=== PATIENT | female | born 1970 | race American Indian/Alaskan Native ===

== ENCOUNTER 2017-06-22 23:15 | Emergency (ER) | payer MEDICARE ==
[2017-06-23 00:46] LABS: Basophils # (Auto) 0.1 K/mm3 (0.0-0.1); Basophils % (Auto) 0.9 % (0.0-1.8); Eosinophils # (Auto) 0.2 K/mm3 (0.0-0.4); Eosinophils % (Auto) 1.6 % (0.0-4.3); Hematocrit 31.6 % (30.3-42.9); Hemoglobin 10.1 gm/dl (10.1-14.3); Lymphocytes # (Auto) 1.5 K/mm3 (1.2-5.4); Mean Corpuscular HGB Conc 32 % (30-34); Mean Corpuscular Hemoglobin 26 pg (28-32); Mean Corpuscular Volume 81 fl (79-97); Monocytes # (Auto) 0.6 K/mm3 (0.0-0.8); Monocytes % (Auto) 6.5 % (0.0-7.3); Platelet Count 417 K/mm3 (140-440); Red Cell Distribution Width 14.4 % (13.2-15.2)
[2017-06-23 10:43] VITALS: BP 178/91
--- NOTE | 2017-06-23 11:42 | XRay Report ---
CHEST 2 VIEWS INDICATION: Chest pain. COMPARISON: None similar. FINDINGS: Frontal and lateral chest radiographs demonstrate limited inspiration with mild exaggerated cardiomediastinal silhouette, though grossly within normal limits. Clear lungs. Slight mid thoracic spine degenerative spurring. CONCLUSION: No acute chest process, as described. Thank you for the opportunity to participate in this patient's care.
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
== END 2017-06-23 14:05 | disposition home or self-care (01) ==
LOC: ED 23:15
DX: R07.89 Other chest pain (principal); I10 Essential (primary) hypertension; E11.9 Type 2 diabetes mellitus without complications
CPT/HCPCS: 36415; 71046; 80048; 84484; 85025; 93005; 93010

== ENCOUNTER 2017-06-25 01:14 | Emergency (ER) | payer MEDICARE ==
[2017-06-25 02:18] LABS: Hematocrit 32.2 % (30.3-42.9); Hemoglobin 10.5 gm/dl (10.1-14.3); Mean Corpuscular HGB Conc 33 % (30-34); Mean Corpuscular Hemoglobin 26 pg (28-32); Mean Corpuscular Volume 81 fl (79-97); Red Blood Count 3.99 M/mm3 (3.65-5.03); Red Cell Distribution Width 14.2 % (13.2-15.2)
[2017-06-25 02:19] LABS: Basophils # (Auto) 0.1 K/mm3 (0.0-0.1); Basophils % (Auto) 0.9 % (0.0-1.8); Eosinophils # (Auto) 0.1 K/mm3 (0.0-0.4); Eosinophils % (Auto) 1.2 % (0.0-4.3); Lymphocytes # (Auto) 1.5 K/mm3 (1.2-5.4); Lymphocytes % (Auto) 13.9 % (13.4-35.0); Monocytes # (Auto) 0.7 K/mm3 (0.0-0.8); Monocytes % (Auto) 6.3 % (0.0-7.3); Platelet Count 428 K/mm3 (140-440)
[2017-06-25 04:09] LABS: Amphetamine Screen,Urine PRESUMPTIVE NEGATIVE; Benzodiazepines Screen,Urine PRESUMPTIVE NEGATIVE; Cannabinoid Screen,Urine PRESUMPTIVE NEGATIVE; Cocaine Screen,Urine PRESUMPTIVE NEGATIVE; Methadone Screen,Urine PRESUMPTIVE NEGATIVE; Opiate Screen,Urine PRESUMPTIVE NEGATIVE
[2017-06-25 04:13] LABS: Bacteria,Urine 1+ /HPF (Negative); Bilirubin,Urine NEG (Negative); Blood,Urine SM (Negative); Color,Urine Yellow (Yellow); Mucus,Urine FEW /HPF; Urobilinogen,Urine < 2.0 mg/dL (<2.0)
[2017-06-25] MEDS ORDERED: NORVASC PO ONE (11:29)
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
[2017-06-25 19:43] VITALS: BP 142/79
== END 2017-06-25 21:12 ==
LOC: ED 01:14
DX: F23 Brief psychotic disorder (principal); I13.10 Hypertensive heart and chronic kidney disease without heart failure, with stage 1 through stage 4 chronic kidney disease, or unspecified chronic kidney disease; N18.3 Chronic kidney disease, stage 3 (moderate)
CPT/HCPCS: 36415; 80048; 80307; 81001; 82962; 85025; 99285; G0480; 80320

== ENCOUNTER 2017-08-19 23:45 | Emergency (ER) | payer MEDICARE ==
[2017-08-20 01:19] LABS: Albumin 3.7 g/dL (3.9-5); Calcium 8.9 mg/dL (8.4-10.2)
[2017-08-20 01:56] LABS: Basophils # (Auto) 0.1 K/mm3 (0.0-0.1); Basophils % (Auto) 0.7 % (0.0-1.8); Eosinophils # (Auto) 0.1 K/mm3 (0.0-0.4); Eosinophils % (Auto) 1.2 % (0.0-4.3); Lymphocytes # (Auto) 1.4 K/mm3 (1.2-5.4); Lymphocytes % (Auto) 14.3 % (13.4-35.0); Mean Corpuscular HGB Conc 31 % (30-34); Mean Corpuscular Volume 82 fl (79-97); Monocytes # (Auto) 0.5 K/mm3 (0.0-0.8); Monocytes % (Auto) 5.4 % (0.0-7.3); Platelet Count 270 K/mm3 (140-440); Red Blood Count 5.66 M/mm3 (3.65-5.03); Red Cell Distribution Width 15.5 % (13.2-15.2)
[2017-08-20 02:02] LABS: Hematocrit 46.3 % (30.3-42.9); Hemoglobin 14.4 gm/dl (10.1-14.3); Mean Corpuscular Hemoglobin 25 pg (28-32)
[2017-08-20 05:15] LABS: Amorphous Crystals,Urine Few; Bacteria,Urine 2+ /HPF (Negative); Bilirubin,Urine NEG (Negative); Blood,Urine SM (Negative); Color,Urine Yellow (Yellow); Hyaline Casts,Urine 1 /LPF; Mucus,Urine FEW /HPF; Urobilinogen,Urine < 2.0 mg/dL (<2.0)
[2017-08-20 05:19] LABS: Amphetamine Screen,Urine PRESUMPTIVE NEGATIVE; Benzodiazepines Screen,Urine PRESUMPTIVE NEGATIVE; Cannabinoid Screen,Urine PRESUMPTIVE NEGATIVE; Cocaine Screen,Urine PRESUMPTIVE NEGATIVE; Methadone Screen,Urine PRESUMPTIVE NEGATIVE; Opiate Screen,Urine PRESUMPTIVE NEGATIVE; Protein,Urine >500 mg/dL (Negative)
--- NOTE | 2017-08-20 13:10 | Emergency Department Report ---
ED General Adult HPI - General Chief complaint: Medical Clearance Stated complaint: MH; ANXIETY; WEAKNESS Time Seen by Provider: 08/20/17 13:04 Source: patient, family Mode of arrival: Ambulatory Limitations: No Limitations - History of Present Illness Initial comments: History of diabetes and chronic kidney disease schizophrenia and anxiety here stating that she's been noncompliant with her meds with increase in anxiety patient is a poor historian says she ran out of her psych meds she wants to talk to mental health she is worried that she might do something to herself or she doesn't plan she is hearing some voices telling her to get some more safe she does not appear suicidal or homicidal at this time but she says she is scared of what she might do if she does get some help she denies medical complaints of chest pain no abdominal pain no headache no stiff neck no fever no focal neural complaints -: days(s) (out of her psych meds), unknown Severity scale (0 -10): 0 Associated Symptoms: denies other symptoms. denies: confusion, chest pain, cough, diaphoresis, headaches, loss of appetite, malaise, nausea/vomiting, rash , shortness of breath, syncope, weakness - Related Data Home Medications Medication Instructions Recorded Confirmed Last Taken Insulin NPH Hum/Reg Insulin Hm 30 units SUB-Q AMHY 06/25/17 06/25/17 Unknown [HumuLIN 70-30 Vial] Lasix 40 mg PO ONCE 06/25/17 06/25/17 Unknown amLODIPine [Norvasc] 5 mg PO QDAY 06/25/17 06/25/17 Unknown Allergies Allergy/AdvReac Type Severity Reaction Status Date / Time naproxen Allergy Unknown Verified 11/19/12 09:10 Sulfa (Sulfonamide Allergy Headache Verified 11/19/12 09:10 Antibiotics) levofloxacin [From Levaquin] AdvReac Headache Verified 06/23/17 00:04 ED Review of Systems ROS: Stated complaint: MH; ANXIETY; WEAKNESS Other details as noted in HPI Comment: All other systems reviewed and negative Constitutional: denies: diaphoresis, fever, malaise Eyes: denies: eye discharge, vision change ENT: denies: dental pain, hearing loss, epistaxis Respiratory: denies: shortness of breath, SOB with exertion, SOB at rest, stridor Cardiovascular: denies: chest pain, palpitations, dyspnea on exertion, orthopnea , edema, syncope, paroxysmal nocturnal dyspnea Gastrointestinal: denies: abdominal pain, nausea, vomiting, diarrhea, constipation, hematemesis, melena, hematochezia Musculoskeletal: denies: joint swelling, arthralgia Skin: denies: change in color, change in hair/nails, pruritus Neurological: denies: headache, weakness, numbness, paresthesias, confusion, abnormal gait, vertigo Psychiatric: anxiety, depression, auditory hallucinations. denies: visual hallucinations, homicidal thoughts ED Past Medical Hx - Past Medical History Previous Medical History?: Yes Hx Hypertension: Yes (takes lisinopril) Hx Congestive Heart Failure: No Hx Diabetes: Yes Hx Renal Disease: Yes (kidney failure) Hx Seizures: Yes (at age 1) Hx Psychiatric Treatment: Yes (schizophrenia,anxiety,depression) Hx Asthma: No Hx COPD: No Hx HIV: No Additional medical history: cholesterol, TIA. 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 fibroids - Surgical History Past Surgical History?: Yes Additional Surgical History: d & c. tubal ligation. hysterectomy - Social History Smoking Status: Never Smoker Substance Use Type: None - Medications Home Medications: Home Medications Medication Instructions Recorded Confirmed Last Taken Type Insulin NPH Hum/Reg Insulin Hm 30 units SUB-Q AMHY 06/25/17 06/25/17 Unknown History [HumuLIN 70-30 Vial] Lasix 40 mg PO ONCE 06/25/17 06/25/17 Unknown History amLODIPine [Norvasc] 5 mg PO QDAY 06/25/17 06/25/17 Unknown History ED Physical Exam - General Limitations: No Limitations General appearance: alert, in no apparent distress, anxious - Head Head exam: Present: atraumatic, normocephalic - Eye Eye exam: Present: PERRL, EOMI - ENT ENT exam: Present: normal exam, normal orophraynx - Neck Neck exam: Present: normal inspection. Absent: tenderness, meningismus - Respiratory Respiratory exam: Present: normal lung sounds bilaterally. Absent: respiratory distress, wheezes, rales, rhonchi, stridor, chest wall tenderness, accessory muscle use, decreased breath sounds, prolonged expiratory - Cardiovascular Cardiovascular Exam: Present: regular rate, normal rhythm. Absent: bradycardia , tachycardia, irregular rhythm, normal heart sounds, systolic murmur, diastolic murmur, rubs, gallop - GI/Abdominal GI/Abdominal exam: Present: soft. Absent: distended, tenderness, guarding, rebound, rigid, mass, pulsatile mass - Extremities Exam Extremities exam: Present: normal inspection, normal capillary refill. Absent: pedal edema, joint swelling, calf tenderness - Back Exam Back exam: Present: normal inspection. Absent: tenderness, CVA tenderness (R), CVA tenderness (L), muscle spasm, paraspinal tenderness, vertebral tenderness, rash noted - Neurological Exam Neurological exam: Present: alert, oriented X3, CN II-XII intact. Absent: motor sensory deficit - Psychiatric Psychiatric exam: Present: depressed, anxious ED Course Vital Signs 08/20/17 08/20/17 00:32 13:08 Temperature 99.6 F Pulse Rate 86 Respiratory 17 18 Rate Blood Pressure 118/60 O2 Sat by Pulse 98 Oximetry ED Medical Decision Making - Lab Data Result diagrams: 08/20/17 00:45 08/20/17 00:45 - Medical Decision Making Patient is medically cleared for psych eval she is not actively si No homicidal at this time mental health will need to evaluate for possible outpatient she has no medical complaints and laboratory studies are essentially unremarkable, medically cleared for mental health eval, notifeed of need for psych eval Critical care attestation.: If time is entered above; I have spent that time in minutes in the direct care of this critically ill patient, excluding procedure time. ED Disposition Clinical Impression: Anxiety, Depression, Psychosis Disposition: DC/[place]-65 PSY HOSP/PSY UNIT Is pt being admited?: No Condition: Stable Referrals: PRIMARY CARE [Primary Care Provider] - 3-5 Days Time of Disposition: 13:21
[2017-08-20 15:32] VITALS: BP 176/88
== END 2017-08-20 16:10 | disposition home or self-care (01) ==
LOC: ED 23:45
DX: F41.9 Anxiety disorder, unspecified (principal); F32.9 Major depressive disorder, single episode, unspecified; F29 Unspecified psychosis not due to a substance or known physiological condition; I10 Essential (primary) hypertension; E11.9 Type 2 diabetes mellitus without complications; Z86.73 Personal history of transient ischemic attack (TIA), and cerebral infarction without residual deficits; Z90.710 Acquired absence of both cervix and uterus; Z98.51 Tubal ligation status; Z88.2 Allergy status to sulfonamides; Z88.8 Allergy status to other drugs, medicaments and biological substances; Z79.4 Long term (current) use of insulin; Z79.899 Other long term (current) drug therapy
CPT/HCPCS: 36415; 80053; 80307; 81001; 84703; 85025; 99284; G0480; 80320

== ENCOUNTER 2017-10-01 22:59 | Emergency (ER) | payer MEDICARE ==
[2017-10-02 00:18] LABS: Basophils # (Auto) 0.1 K/mm3 (0.0-0.1); Basophils % (Auto) 0.9 % (0.0-1.8); Eosinophils # (Auto) 0.2 K/mm3 (0.0-0.4); Eosinophils % (Auto) 1.9 % (0.0-4.3); Hemoglobin 10.1 gm/dl (10.1-14.3); Lymphocytes # (Auto) 1.7 K/mm3 (1.2-5.4); Lymphocytes % (Auto) 16.3 % (13.4-35.0); Mean Corpuscular HGB Conc 33 % (30-34); Mean Corpuscular Volume 79 fl (79-97); Monocytes # (Auto) 0.7 K/mm3 (0.0-0.8); Monocytes % (Auto) 7.1 % (0.0-7.3); Platelet Count 409 K/mm3 (140-440); Red Blood Count 3.93 M/mm3 (3.65-5.03)
[2017-10-02 00:19] LABS: Mean Corpuscular Hemoglobin 26 pg (28-32)
[2017-10-02 02:31] LABS: Bilirubin,Urine NEG (Negative); Blood,Urine SM (Negative); Color,Urine Yellow (Yellow); Mucus,Urine FEW /HPF; Urobilinogen,Urine < 2.0 mg/dL (<2.0)
[2017-10-02 02:35] LABS: Amphetamine Screen,Urine PRESUMPTIVE NEGATIVE; Benzodiazepines Screen,Urine PRESUMPTIVE NEGATIVE; Cannabinoid Screen,Urine PRESUMPTIVE NEGATIVE; Cocaine Screen,Urine PRESUMPTIVE NEGATIVE; Methadone Screen,Urine PRESUMPTIVE NEGATIVE; Opiate Screen,Urine PRESUMPTIVE NEGATIVE
[2017-10-02] MEDS ORDERED: CATAPRES ONE (03:48)
[2017-10-02] MEDS ORDERED: CATAPRES PO ONE (03:57)
--- NOTE | 2017-10-02 08:39 | Emergency Department Report ---
ED General Adult HPI - General Chief complaint: Psych Stated complaint: ANXIETY Time Seen by Provider: 10/02/17 06:58 Source: patient, EMS (ems notes not available at time of chart dictation), RN notes reviewed, old records reviewed Mode of arrival: Ambulatory Limitations: No Limitations - History of Present Illness Initial comments: Primary care Dr.: Dr. Bennett; patient reports having a follow-up appointment this Monday Past medical history: Hypertension, schizophrenia, anxiety, renal insufficiency. Patient presents to the ER with a complaint of audio hallucinations for the past couple weeks after running out of her olanzapine and sertraline. She reports her zoloft doses 50 mg daily at bedtime, and her olanzapine dose is 15 mg daily at bedtime. She is not homicidal or suicidal, she does not have access to guns or firearms. She does not have visual hallucinations. The patient indicates she is going to follow up with her primary care doctor on Monday. She denies headache, neck pain, chest pain, abdominal pain, shortness of breath, urinary symptoms. Her symptoms are intermittent, painless, did not radiate anywhere, and she indicates that she thinks they will resolve once she restarts her psychiatric medications. -: Gradual, week(s) Severity scale (0 -10): 0 Improves with: medication Associated Symptoms: denies: confusion, chest pain, cough, diaphoresis, fever/ chills, headaches, loss of appetite, malaise, nausea/vomiting, rash, seizure, shortness of breath, syncope, weakness - Related Data Home Medications Medication Instructions Recorded Confirmed Last Taken Insulin NPH Hum/Reg Insulin Hm 30 units SUB-Q AMHY 06/25/17 06/25/17 Unknown [HumuLIN 70-30 Vial] Lasix 40 mg PO ONCE 06/25/17 06/25/17 Unknown amLODIPine [Norvasc] 5 mg PO QDAY 06/25/17 06/25/17 Unknown Previous Rx's Medication Instructions Recorded Last Taken Type Olanzapine [OLANZapine] 15 mg PO HS #15 tablet 08/20/17 Unknown Rx Sertraline [Zoloft] 50 mg PO QDAY #15 tablet 08/20/17 Unknown Rx Amlodipine Besylate [Norvasc] 10 mg PO QDAY #30 tablet 10/02/17 Unknown Rx Olanzapine [Zyprexa] 15 mg PO QHS #10 tablet 10/02/17 Unknown Rx Sertraline [Zoloft] 50 mg PO QHS #10 tablet 10/02/17 Unknown Rx Allergies Allergy/AdvReac Type Severity Reaction Status Date / Time naproxen Allergy Unknown Verified 11/19/12 09:10 Sulfa (Sulfonamide Allergy Headache Verified 11/19/12 09:10 Antibiotics) levofloxacin [From Levaquin] AdvReac Headache Verified 06/23/17 00:04 ED Review of Systems ROS: Stated complaint: ANXIETY Other details as noted in HPI Comment: All other systems reviewed and negative ED Past Medical Hx - Past Medical History Hx Hypertension: Yes (takes lisinopril) Hx Congestive Heart Failure: No Hx Diabetes: Yes Hx Renal Disease: Yes (kidney failure) Hx Seizures: Yes (at age 1) Hx Psychiatric Treatment: Yes (schizophrenia,anxiety,depression) Hx Asthma: No Hx COPD: No Hx HIV: No Additional medical history: cholesterol, TIA. 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 fibroids - Surgical History Additional Surgical History: d & c. tubal ligation. hysterectomy - Social History Smoking Status: Never Smoker Substance Use Type: None - Medications Home Medications: Home Medications Medication Instructions Recorded Confirmed Last Taken Type Insulin NPH Hum/Reg Insulin Hm 30 units SUB-Q AMHY 06/25/17 06/25/17 Unknown History [HumuLIN 70-30 Vial] Lasix 40 mg PO ONCE 06/25/17 06/25/17 Unknown History amLODIPine [Norvasc] 5 mg PO QDAY 06/25/17 06/25/17 Unknown History Olanzapine [OLANZapine] 15 mg PO HS #15 tablet 08/20/17 Unknown Rx Sertraline [Zoloft] 50 mg PO QDAY #15 tablet 08/20/17 Unknown Rx Amlodipine Besylate [Norvasc] 10 mg PO QDAY #30 tablet 10/02/17 Unknown Rx Olanzapine [Zyprexa] 15 mg PO QHS #10 tablet 10/02/17 Unknown Rx Sertraline [Zoloft] 50 mg PO QHS #10 tablet 10/02/17 Unknown Rx ED Physical Exam - General Limitations: No Limitations General appearance: alert, in no apparent distress - Head Head exam: Present: atraumatic, normocephalic - Eye Eye exam: Present: normal appearance, EOMI. Absent: nystagmus Pupils: Present: other (visual acuity intact to finger counting, color perception, reading at a close distance) - ENT ENT exam: Present: normal exam, normal orophraynx, mucous membranes moist, normal external ear exam - Neck Neck exam: Present: normal inspection, full ROM. Absent: tenderness, meningismus - Respiratory Respiratory exam: Present: normal lung sounds bilaterally. Absent: respiratory distress, chest wall tenderness - Cardiovascular Cardiovascular Exam: Present: regular rate, normal rhythm, normal heart sounds. Absent: bradycardia, tachycardia, irregular rhythm, systolic murmur, diastolic murmur, rubs, gallop - GI/Abdominal GI/Abdominal exam: Present: soft, normal bowel sounds. Absent: distended, tenderness, guarding, rebound, rigid, pulsatile mass - Extremities Exam Extremities exam: Present: normal inspection, full ROM, normal capillary refill , other (2+ pulses noted in the bilateral upper, lower extremities. Compartments soft. No long bony tenderness. The pelvis is stable.). Absent: tenderness, calf tenderness - Back Exam Back exam: Present: normal inspection, full ROM. Absent: tenderness, CVA tenderness (R), paraspinal tenderness, vertebral tenderness - Neurological Exam Neurological exam: Present: alert, oriented X3, CN II-XII intact, normal gait ( patient walks with a steady gait with the assistance of a rolling walker), other (Extraocular movements intact. Tongue midline. No facial droop. Facial sensation intact to light touch in the V1, V2, V3 distribution bilaterally. 5 and 5 strength in 4 extremities.. Sensation is intact to light touch in 4 extremities.). Absent: motor sensory deficit - Psychiatric Psychiatric exam: Present: anxious. Absent: homicidal ideation, suicidal ideation - Skin Skin exam: Present: warm, dry, intact, normal color. Absent: rash ED Course Vital Signs 10/01/17 10/02/17 10/02/17 22:58 03:42 03:59 Temperature 98.3 F 98.3 F Pulse Rate 84 86 86 Respiratory 18 18 Rate Blood Pressure 185/94 213/117 213/117 Blood Pressure [Left] O2 Sat by Pulse 95 98 Oximetry 10/02/17 08:44 Temperature 98.3 F Pulse Rate 72 Respiratory 17 Rate Blood Pressure Blood Pressure 157/82 [Left] O2 Sat by Pulse 99 Oximetry ED Medical Decision Making - Lab Data Result diagrams: 10/01/17 23:49 10/01/17 23:49 Vital Signs 10/01/17 10/02/17 10/02/17 22:58 03:42 03:59 Temperature 98.3 F 98.3 F Pulse Rate 84 86 86 Respiratory 18 18 Rate Blood Pressure 185/94 213/117 213/117 O2 Sat by Pulse 95 98 Oximetry Lab Results 10/01/17 10/01/17 10/01/17 Range/Units 23:49 23:49 23:49 WBC (4.5-11.0) K/mm3 RBC (3.65-5.03) M/mm3 Hgb (10.1-14.3) gm/dl Hct (30.3-42.9) % MCV (79-97) fl MCH (28-32) pg MCHC (30-34) % RDW (13.2-15.2) % Plt Count (140-440) K/mm3 Lymph % (Auto) (13.4-35.0) % [place] % (Auto) (0.0-7.3) % Eos % (Auto) (0.0-4.3) % Baso % (Auto) (0.0-1.8) % Lymph # (1.2-5.4) K/mm3 [place] # (0.0-0.8) K/mm3 Eos # (0.0-0.4) K/mm3 Baso # (0.0-0.1) K/mm3 Seg Neutrophils % (40.0-70.0) % Seg Neutrophils # (1.8-7.7) K/mm3 Sodium 138 (137-145) mmol/L Potassium 4.5 (3.6-5.0) mmol/L Chloride 103.9 (98-107) mmol/L Carbon Dioxide 17 L (22-30) mmol/L Anion Gap 22 mmol/L BUN 45 H (7-17) mg/dL Creatinine 3.2 H (0.7-1.2) mg/dL Estimated GFR 19 ml/min BUN/Creatinine Ratio 14 % Glucose 276 H (65-100) mg/dL Calcium 9.0 (8.4-10.2) mg/dL HCG, Qual (Negative) Urine Color (Yellow) Urine Turbidity (Clear) Urine pH (5.0-7.0) Ur Specific [place] (1.003-1.030) Urine Protein (Negative) mg/dL Urine Glucose (UA) (Negative) mg/dL Urine Ketones (Negative) mg/dL Urine Blood (Negative) Urine Nitrite (Negative) Urine Bilirubin (Negative) Urine Urobilinogen (<2.0) mg/dL Ur Leukocyte Esterase (Negative) Urine WBC (Auto) (0.0-6.0) /HPF Urine RBC (Auto) (0.0-6.0) /HPF U Epithel Cells (Auto) (0-13.0) /HPF Urine Mucus /HPF Salicylates < 0.3 L (2.8-20.0) mg/dL Urine Opiates Screen Urine Methadone Screen Acetaminophen < 5.0 L (10.0-30.0) ug/mL Ur Barbiturates Screen Ur Phencyclidine Scrn Ur Amphetamines Screen U Benzodiazepines Scrn Urine Cocaine Screen U Marijuana (THC) Screen Drugs of Abuse Note Plasma/Serum Alcohol (0-0.07) % 10/01/17 10/01/17 10/01/17 Range/Units 23:49 23:49 23:49 WBC 10.2 (4.5-11.0) K/mm3 RBC 3.93 (3.65-5.03) M/mm3 Hgb 10.1 (10.1-14.3) gm/dl Hct 31.0 (30.3-42.9) % MCV 79 (79-97) fl MCH 26 L (28-32) pg MCHC 33 (30-34) % RDW 16.0 H (13.2-15.2) % Plt Count 409 (140-440) K/mm3 Lymph % (Auto) 16.3 (13.4-35.0) % [place] % (Auto) 7.1 (0.0-7.3) % Eos % (Auto) 1.9 (0.0-4.3) % Baso % (Auto) 0.9 (0.0-1.8) % Lymph # 1.7 (1.2-5.4) K/mm3 [place] # 0.7 (0.0-0.8) K/mm3 Eos # 0.2 (0.0-0.4) K/mm3 Baso # 0.1 (0.0-0.1) K/mm3 Seg Neutrophils % 73.8 H (40.0-70.0) % Seg Neutrophils # 7.6 (1.8-7.7) K/mm3 Sodium (137-145) mmol/L Potassium (3.6-5.0) mmol/L Chloride (98-107) mmol/L Carbon Dioxide (22-30) mmol/L Anion Gap mmol/L BUN (7-17) mg/dL Creatinine (0.7-1.2) mg/dL Estimated GFR ml/min BUN/Creatinine Ratio % Glucose (65-100) mg/dL Calcium (8.4-10.2) mg/dL HCG, Qual Negative (Negative) Urine Color (Yellow) Urine Turbidity (Clear) Urine pH (5.0-7.0) Ur Specific [place] (1.003-1.030) Urine Protein (Negative) mg/dL Urine Glucose (UA) (Negative) mg/dL Urine Ketones (Negative) mg/dL Urine Blood (Negative) Urine Nitrite (Negative) Urine Bilirubin (Negative) Urine Urobilinogen (<2.0) mg/dL Ur Leukocyte Esterase (Negative) Urine WBC (Auto) (0.0-6.0) /HPF Urine RBC (Auto) (0.0-6.0) /HPF U Epithel Cells (Auto) (0-13.0) /HPF Urine Mucus /HPF Salicylates (2.8-20.0) mg/dL Urine Opiates Screen Urine Methadone Screen Acetaminophen (10.0-30.0) ug/mL Ur Barbiturates Screen Ur Phencyclidine Scrn Ur Amphetamines Screen U Benzodiazepines Scrn Urine Cocaine Screen U Marijuana (THC) Screen Drugs of Abuse Note Plasma/Serum Alcohol < 0.01 (0-0.07) % 10/02/17 10/02/17 Range/Units 02:11 02:11 WBC (4.5-11.0) K/mm3 RBC (3.65-5.03) M/mm3 Hgb (10.1-14.3) gm/dl Hct (30.3-42.9) % MCV (79-97) fl MCH (28-32) pg MCHC (30-34) % RDW (13.2-15.2) % Plt Count (140-440) K/mm3 Lymph % (Auto) (13.4-35.0) % [place] % (Auto) (0.0-7.3) % Eos % (Auto) (0.0-4.3) % Baso % (Auto) (0.0-1.8) % Lymph # (1.2-5.4) K/mm3 [place] # (0.0-0.8) K/mm3 Eos # (0.0-0.4) K/mm3 Baso # (0.0-0.1) K/mm3 Seg Neutrophils % (40.0-70.0) % Seg Neutrophils # (1.8-7.7) K/mm3 Sodium (137-145) mmol/L Potassium (3.6-5.0) mmol/L Chloride (98-107) mmol/L Carbon Dioxide (22-30) mmol/L Anion Gap mmol/L BUN (7-17) mg/dL Creatinine (0.7-1.2) mg/dL Estimated GFR ml/min BUN/Creatinine Ratio % Glucose (65-100) mg/dL Calcium (8.4-10.2) mg/dL HCG, Qual (Negative) Urine Color Yellow (Yellow) Urine Turbidity Clear (Clear) Urine pH 5.0 (5.0-7.0) Ur Specific [place] 1.015 (1.003-1.030) Urine Protein 100 mg/dl (Negative) mg/dL Urine Glucose (UA) >=500 (Negative) mg/dL Urine Ketones Neg (Negative) mg/dL Urine Blood Sm (Negative) Urine Nitrite Neg (Negative) Urine Bilirubin Neg (Negative) Urine Urobilinogen < 2.0 (<2.0) mg/dL Ur Leukocyte Esterase Neg (Negative) Urine WBC (Auto) 4.0 (0.0-6.0) /HPF Urine RBC (Auto) 2.0 (0.0-6.0) /HPF U Epithel Cells (Auto) 1.0 (0-13.0) /HPF Urine Mucus Few /HPF Salicylates (2.8-20.0) mg/dL Urine Opiates Screen Presumptive negative Urine Methadone Screen Presumptive negative Acetaminophen (10.0-30.0) ug/mL Ur Barbiturates Screen Presumptive negative Ur Phencyclidine Scrn Presumptive negative Ur Amphetamines Screen Presumptive negative U Benzodiazepines Scrn Presumptive negative Urine Cocaine Screen Presumptive negative U Marijuana (THC) Screen Presumptive negative Drugs of Abuse Note Disclamer Plasma/Serum Alcohol (0-0.07) % - Medical Decision Making Differential diagnosis, including but not limited to: Chronic renal insufficiency, medication noncompliance, hypertension that is asymptomatic, chronic schizophrenic, audio hallucinations Assessment and plan: 47-year-old female with nonspecific complaint of audio hallucinations after not being on her psychiatric medications for a few weeks. She is not homicidal or suicidal, she is clinically sober, and appears to exhibit decision-making capacity and rational thought process. She did not meet criteria for 1013 or involuntary hold at this time. Furthermore, she endorses that she is going to follow up with her primary care doctor at the end of the week. She has numerous chronic medical conditions which are poorly managed, including her renal insufficiency, hyperglycemia, and hypertension. Please reference the [employer] clinical policy on hypertension medicines not symptomatic. She reports being on amlodipine. I will give her a 10 day refill on her psychiatric medications, refer her to outpatient nephrology, she is going to follow up with her outpatient primary care doctor on Monday, and she can follow up with outpatient psychiatry. Critical care attestation.: If time is entered above; I have spent that time in minutes in the direct care of this critically ill patient, excluding procedure time. ED Disposition Clinical Impression: Elevated blood pressure reading, CKD (chronic kidney disease), Medication refill Disposition: - TO HOME OR SELFCARE Is pt being admited?: No Does the pt Need Aspirin: No Condition: Good Instructions: Hypertension (ED) Additional Instructions: Take the medications as directed. Follow up with the primary care doctor at the end of the week as scheduled. Follow up with the nephrology specialist within the next month for chronic kidney disease and elevated blood pressure. Follow up with a primary care doctor or psychiatrist for additional refills on psychiatric medication. Long-term complications of hypertension and elevated blood pressure include stroke, heart attack, disability, paralysis, loss of quality of life. Return to the ER right away with new pain, worsened pain, migration of pain, fevers, chills, lethargy, irritability, projectile vomiting, change in mental status, confusion, inability to tolerate liquid feeds. Prescriptions: Olanzapine [Zyprexa] 15 mg PO QHS #10 tablet Sertraline [Zoloft] 50 mg PO QHS #10 tablet Amlodipine Besylate [Norvasc] 10 mg PO QDAY #30 tablet Referrals: PRIMARY CARE, [Primary Care Provider] - 3-5 Days JUAN DUFF MD [Staff Physician] - 3-5 Days JASON POST MD [Staff Physician] - 3-5 Days
[2017-10-02 08:45] VITALS: BP 157/82
== END 2017-10-02 09:53 | disposition home or self-care (01) ==
LOC: ED 22:59
DX: F32.9 Major depressive disorder, single episode, unspecified (principal); F41.9 Anxiety disorder, unspecified; F20.9 Schizophrenia, unspecified; I12.9 Hypertensive chronic kidney disease with stage 1 through stage 4 chronic kidney disease, or unspecified chronic kidney disease; E11.22 Type 2 diabetes mellitus with diabetic chronic kidney disease; N18.9 Chronic kidney disease, unspecified; Z79.4 Long term (current) use of insulin; Z90.710 Acquired absence of both cervix and uterus; Z88.1 Allergy status to other antibiotic agents; Z88.2 Allergy status to sulfonamides; Z88.8 Allergy status to other drugs, medicaments and biological substances
CPT/HCPCS: 36415; 80048; 80307; 81001; 84703; 85025; 99283; G0480; 80320

== ENCOUNTER 2017-11-30 04:40 | Emergency (ER) | payer BC, MEDICARE ==
[2017-11-30 05:46] LABS: Calcium 9.3 mg/dL (8.4-10.2)
[2017-11-30] MEDS ORDERED: TYLENOL PO ONE (06:00)
[2017-11-30] MEDS ORDERED: TYLENOL ONE (06:14)
[2017-11-30 06:19] LABS: Basophils # (Auto) 0.1 K/mm3 (0.0-0.1); Basophils % (Auto) 0.8 % (0.0-1.8); Eosinophils # (Auto) 0.2 K/mm3 (0.0-0.4); Eosinophils % (Auto) 2.5 % (0.0-4.3); Hemoglobin 10.2 gm/dl (10.1-14.3); Lymphocytes # (Auto) 1.4 K/mm3 (1.2-5.4); Monocytes # (Auto) 0.6 K/mm3 (0.0-0.8); Monocytes % (Auto) 5.9 % (0.0-7.3)
[2017-11-30 06:24] LABS: Hematocrit 30.9 % (30.3-42.9); Mean Corpuscular HGB Conc 33 % (30-34); Mean Corpuscular Hemoglobin 27 pg (28-32); Mean Corpuscular Volume 81 fl (79-97); Platelet Count 405 K/mm3 (140-440); Red Blood Count 3.82 M/mm3 (3.65-5.03); Red Cell Distribution Width 15.6 % (13.2-15.2)
[2017-11-30 06:30] LABS: Amphetamine Screen,Urine PRESUMPTIVE NEGATIVE; Benzodiazepines Screen,Urine PRESUMPTIVE NEGATIVE; Cannabinoid Screen,Urine PRESUMPTIVE NEGATIVE; Cocaine Screen,Urine PRESUMPTIVE NEGATIVE; Methadone Screen,Urine PRESUMPTIVE NEGATIVE; Opiate Screen,Urine PRESUMPTIVE NEGATIVE
--- NOTE | 2017-11-30 11:31 | Emergency Department Report ---
ED Psych HPI - General Chief Complaint: Psych Stated Complaint: MH EVAL/HEARING VOICES Time Seen by Provider: 11/30/17 11:19 Source: patient Mode of arrival: Ambulatory Limitations: No Limitations - History of Present Illness Initial Comments: 47 year old female with a past medical history of schizophrenia, anxiety, depression, and multiple other medical conditions (see PMH) presents to the hospital with complaints of hearing voices/constant chattering, insomnia, decreased appetite, and anxiety the last 2-3 weeks. Symptoms started since discontinuing her psychiatric medication. Patient has the medication but states she does not take it because she did not think they were working. No physical complaints reported. Patient expresses that she does have some thoughts of suicide due to frustration about her situation but no plan reported. He denies previous attempts. - Related Data Home Medications Medication Instructions Recorded Confirmed Last Taken Insulin NPH Hum/Reg Insulin Hm 30 units SUB-Q AMHY 06/25/17 06/25/17 Unknown [HumuLIN 70-30 Vial] Lasix 40 mg PO ONCE 06/25/17 06/25/17 Unknown amLODIPine [Norvasc] 5 mg PO QDAY 06/25/17 06/25/17 Unknown Previous Rx's Medication Instructions Recorded Last Taken Type OLANZapine 15 mg PO HS #15 tablet 08/20/17 Unknown Rx Sertraline [Zoloft] 50 mg PO QDAY #15 tablet 08/20/17 Unknown Rx Amlodipine Besylate [Norvasc] 10 mg PO QDAY #30 tablet 10/02/17 Unknown Rx OLANZapine [Zyprexa] 15 mg PO QHS #10 tablet 10/02/17 Unknown Rx Sertraline [Zoloft] 50 mg PO QHS #10 tablet 10/02/17 Unknown Rx Allergies Allergy/AdvReac Type Severity Reaction Status Date / Time naproxen Allergy Unknown Verified 11/19/12 09:10 Sulfa (Sulfonamide Allergy Headache Verified 11/19/12 09:10 Antibiotics) levofloxacin [From Levaquin] AdvReac Headache Verified 06/23/17 00:04 ED Review of Systems ROS: Stated complaint: MH EVAL/HEARING VOICES Other details as noted in HPI Comment: All other systems reviewed and negative ED Past Medical Hx - Past Medical History Hx Hypertension: Yes (takes lisinopril) Hx Congestive Heart Failure: No Hx Diabetes: Yes Hx Renal Disease: Yes (kidney failure) Hx Seizures: Yes (at age 1) Hx Psychiatric Treatment: Yes (schizophrenia,anxiety,depression) Hx Asthma: No Hx COPD: No Hx HIV: No Additional medical history: cholesterol, TIA. 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 fibroids - Surgical History Past Surgical History?: Yes Additional Surgical History: d & c. tubal ligation. hysterectomy - Social History Smoking Status: Never Smoker Substance Use Type: None - Medications Home Medications: Home Medications Medication Instructions Recorded Confirmed Last Taken Type Insulin NPH Hum/Reg Insulin Hm 30 units SUB-Q AMHY 06/25/17 06/25/17 Unknown History [HumuLIN 70-30 Vial] Lasix 40 mg PO ONCE 06/25/17 06/25/17 Unknown History amLODIPine [Norvasc] 5 mg PO QDAY 06/25/17 06/25/17 Unknown History OLANZapine 15 mg PO HS #15 tablet 08/20/17 Unknown Rx Sertraline [Zoloft] 50 mg PO QDAY #15 tablet 08/20/17 Unknown Rx Amlodipine Besylate [Norvasc] 10 mg PO QDAY #30 tablet 10/02/17 Unknown Rx OLANZapine [Zyprexa] 15 mg PO QHS #10 tablet 10/02/17 Unknown Rx Sertraline [Zoloft] 50 mg PO QHS #10 tablet 10/02/17 Unknown Rx ED Physical Exam - General Limitations: No Limitations - Other Other exam information: General: No limitations, patient is alert in no acute distress Head exam: Atraumatic, normocephalic Eyes exam: Normal appearance, pupils equal reactive to light, extraocular movements intact ENT: Moist mucous membrane, normal oropharynx Neck exam: Normal inspection, full range of motion, no meningismus nontender Respiratory exam: Clear to auscultation bilateral, no wheezes, rales, crackles Cardiovascular: Normal rate and rhythm, normal heart sounds Abdomen: Soft, nondistended, and nontender, with normal bowel sounds, no rebound, or guarding Extremity: Full range of motion normal inspection no deformity Back: Normal Inspection, full range of motion, no tenderness Neurologic: Alert, oriented x3, cranial nerves intact, no motor or sensory deficit Psychiatric: Depressed affect Skin: Warm, dry, intact ED Course Vital Signs 11/30/17 11/30/17 11/30/17 05:16 06:10 08:49 Temperature 98.6 F 98.7 F Pulse Rate 82 74 Respiratory 14 18 16 Rate Blood Pressure 173/91 192/87 Blood Pressure [Left] Blood Pressure [Right] O2 Sat by Pulse 97 100 Oximetry 11/30/17 11/30/17 11/30/17 13:21 19:30 20:44 Temperature 98.3 F Pulse Rate 70 79 Respiratory 20 20 Rate Blood Pressure 176/100 Blood Pressure 171/106 [Left] Blood Pressure [Right] O2 Sat by Pulse 99 Oximetry 11/30/17 12/01/17 12/01/17 22:52 02:58 09:50 Temperature 98.2 F 98.1 F Pulse Rate 70 65 78 Respiratory 16 18 Rate Blood Pressure 175/87 Blood Pressure 150/74 151/78 [Left] Blood Pressure [Right] O2 Sat by Pulse 98 98 98 Oximetry 12/01/17 12/01/17 12/01/17 10:27 21:00 23:00 Temperature 98.7 F 98.7 F Pulse Rate 75 75 Respiratory 16 18 18 Rate Blood Pressure Blood Pressure 123/62 [Left] Blood Pressure 123/62 [Right] O2 Sat by Pulse 98 97 97 Oximetry 12/02/17 12/02/17 10:00 10:53 Temperature 98.4 F Pulse Rate 72 72 Respiratory 18 Rate Blood Pressure 204/90 Blood Pressure 204/90 [Left] Blood Pressure [Right] O2 Sat by Pulse 97 Oximetry ED Medical Decision Making - Lab Data Result diagrams: 11/30/17 05:26 12/01/17 20:43 Lab Results 11/30/17 11/30/17 11/30/17 Range/Units 05:26 05:26 05:26 WBC (4.5-11.0) K/mm3 RBC (3.65-5.03) M/mm3 Hgb (10.1-14.3) gm/dl Hct (30.3-42.9) % MCV (79-97) fl MCH (28-32) pg MCHC (30-34) % RDW (13.2-15.2) % Plt Count (140-440) K/mm3 Lymph % (Auto) (13.4-35.0) % [place] % (Auto) (0.0-7.3) % Eos % (Auto) (0.0-4.3) % Baso % (Auto) (0.0-1.8) % Lymph # (1.2-5.4) K/mm3 [place] # (0.0-0.8) K/mm3 Eos # (0.0-0.4) K/mm3 Baso # (0.0-0.1) K/mm3 Seg Neutrophils % (40.0-70.0) % Seg Neutrophils # (1.8-7.7) K/mm3 Sodium 140 (137-145) mmol/L Potassium 5.1 H (3.6-5.0) mmol/L Chloride 104.4 (98-107) mmol/L Carbon Dioxide 24 (22-30) mmol/L Anion Gap 17 mmol/L BUN 50 H (7-17) mg/dL Creatinine 3.3 H (0.7-1.2) mg/dL Estimated GFR 18 ml/min BUN/Creatinine Ratio 15 % Glucose 348 H (65-100) mg/dL POC Glucose (70-105) Calcium 9.3 (8.4-10.2) mg/dL Salicylates < 0.3 L (2.8-20.0) mg/dL Urine Opiates Screen Urine Methadone Screen Acetaminophen < 5.0 L (10.0-30.0) ug/mL Ur Barbiturates Screen Ur Phencyclidine Scrn Ur Amphetamines Screen U Benzodiazepines Scrn Urine Cocaine Screen U Marijuana (THC) Screen Drugs of Abuse Note Plasma/Serum Alcohol (0-0.07) % 11/30/17 11/30/17 11/30/17 Range/Units 05:26 05:26 05:41 WBC 9.4 (4.5-11.0) K/mm3 RBC 3.82 (3.65-5.03) M/mm3 Hgb 10.2 (10.1-14.3) gm/dl Hct 30.9 (30.3-42.9) % MCV 81 (79-97) fl MCH 27 L (28-32) pg MCHC 33 (30-34) % RDW 15.6 H (13.2-15.2) % Plt Count 405 (140-440) K/mm3 Lymph % (Auto) 15.0 (13.4-35.0) % [place] % (Auto) 5.9 (0.0-7.3) % Eos % (Auto) 2.5 (0.0-4.3) % Baso % (Auto) 0.8 (0.0-1.8) % Lymph # 1.4 (1.2-5.4) K/mm3 [place] # 0.6 (0.0-0.8) K/mm3 Eos # 0.2 (0.0-0.4) K/mm3 Baso # 0.1 (0.0-0.1) K/mm3 Seg Neutrophils % 75.8 H (40.0-70.0) % Seg Neutrophils # 7.1 (1.8-7.7) K/mm3 Sodium (137-145) mmol/L Potassium (3.6-5.0) mmol/L Chloride (98-107) mmol/L Carbon Dioxide (22-30) mmol/L Anion Gap mmol/L BUN (7-17) mg/dL Creatinine (0.7-1.2) mg/dL Estimated GFR ml/min BUN/Creatinine Ratio % Glucose (65-100) mg/dL POC Glucose (70-105) Calcium (8.4-10.2) mg/dL Salicylates (2.8-20.0) mg/dL Urine Opiates Screen Presumptive negative Urine Methadone Screen Presumptive negative Acetaminophen (10.0-30.0) ug/mL Ur Barbiturates Screen Presumptive negative Ur Phencyclidine Scrn Presumptive negative Ur Amphetamines Screen Presumptive negative U Benzodiazepines Scrn Presumptive negative Urine Cocaine Screen Presumptive negative U Marijuana (THC) Screen Presumptive negative Drugs of Abuse Note Disclamer Plasma/Serum Alcohol < 0.01 (0-0.07) % 11/30/17 Range/Units 17:55 WBC (4.5-11.0) K/mm3 RBC (3.65-5.03) M/mm3 Hgb (10.1-14.3) gm/dl Hct (30.3-42.9) % MCV (79-97) fl MCH (28-32) pg MCHC (30-34) % RDW (13.2-15.2) % Plt Count (140-440) K/mm3 Lymph % (Auto) (13.4-35.0) % [place] % (Auto) (0.0-7.3) % Eos % (Auto) (0.0-4.3) % Baso % (Auto) (0.0-1.8) % Lymph # (1.2-5.4) K/mm3 [place] # (0.0-0.8) K/mm3 Eos # (0.0-0.4) K/mm3 Baso # (0.0-0.1) K/mm3 Seg Neutrophils % (40.0-70.0) % Seg Neutrophils # (1.8-7.7) K/mm3 Sodium (137-145) mmol/L Potassium (3.6-5.0) mmol/L Chloride (98-107) mmol/L Carbon Dioxide (22-30) mmol/L Anion Gap mmol/L BUN (7-17) mg/dL Creatinine (0.7-1.2) mg/dL Estimated GFR ml/min BUN/Creatinine Ratio % Glucose (65-100) mg/dL POC Glucose 341 H (70-105) Calcium (8.4-10.2) mg/dL Salicylates (2.8-20.0) mg/dL Urine Opiates Screen Urine Methadone Screen Acetaminophen (10.0-30.0) ug/mL Ur Barbiturates Screen Ur Phencyclidine Scrn Ur Amphetamines Screen U Benzodiazepines Scrn Urine Cocaine Screen U Marijuana (THC) Screen Drugs of Abuse Note Plasma/Serum Alcohol (0-0.07) % - EKG Data -: EKG Interpreted by Me EKG shows normal: sinus rhythm, axis (qrs 27), QRS complexes (qrsd 92), ST-T waves (no stemi/ t wave inv) Rate: normal (63) - Medical Decision Making Patient presents with psychosis secondary to medication noncompliance. 1013 signed due to expression of suicidal thoughts. Transfer form is signed. Mental health evaluation orders and transfer pending. pt renal insuf is chronic and unchanged Kayexelyate provided for mild hyperkalemia Insulin provided for mild hyperglycemia Most recent meds to be continued pt will be medically cleared once glucose in 200's, htn improved, ua, urine preg pending will be s/o to recheck these values after treatment - Differential Diagnosis med noncompliance, SI, HI, psychosis Critical Care Time: No Critical care attestation.: If time is entered above; I have spent that time in minutes in the direct care of this critically ill patient, excluding procedure time. ED Disposition Clinical Impression: Psychosis, Suicidal ideation, HTN (hypertension), Diabetes, Chronic renal insufficiency, Hyperkalemia Disposition: DC/TX-65 PSY HOSP/PSY UNIT Is pt being admited?: No Condition: Stable Referrals: PRIMARY CARE, [Primary Care Provider] - 3-5 Days Time of Disposition: 20:05
[2017-11-30] MEDS ORDERED: HumuLIN R SUB-Q ONE (19:49)
[2017-11-30] MEDS ORDERED: KIONEX PO ONE (19:50)
[2017-11-30] MEDS ORDERED: CATAPRES PO ONE (20:03)
[2017-11-30 20:28] LABS: Bilirubin,Urine NEG (Negative); Blood,Urine NEG (Negative); Color,Urine Yellow (Yellow); HCG Qualitative,Urine Negative (Negative); Urobilinogen,Urine < 2.0 mg/dL (<2.0)
[2017-11-30 20:52] LABS: Protein,Urine >500 mg/dL (Negative)
[2017-11-30] MEDS ORDERED: NACL 0.9% 500 ML 500 ML IV ONE (23:15)
[2017-12-01 04:24] LABS: Calcium 8.9 mg/dL (8.4-10.2)
[2017-12-01] MEDS: NORVASC PO SCH (09:48)
[2017-12-01] MEDS ORDERED: NORVASC PO SCH (10:00)
[2017-12-01] MEDS ORDERED: ZOLOFT PO SCH (10:00)
--- NOTE | 2017-12-01 14:54 | Consultation ---
History of Present Illness - Reason for Consult Consult date: 12/01/17 Reason for consult: Mental Health Evaluation Requesting physician: CARLINE DESOUZA - Chief Complaint Chief complaint: "I can't deal with the voices" - History of Present Psychiatric Illness 47 year old AA female presenting to the ER for AH's and poor appetite. The patient is calm and cooperative during the assessment. She stated that feel depressed and experiencing voices that are overwhelming. She stated that she cannot sleep or eat like she want to because of the voices. She rate her depression 9/10, with 10 being the worse. She stated having life stressors at this time. The patient didn't elaborate about the life stressors when asked. She stated that her "biggest issue" are the voices. She stated that the voices have been active for several weeks. She stated that she have not taken her medication (Zyprexa) in a while. She denies SI/HI's and VH's. She acknowledged erratic sleep, but denies recreational drug use and alcohol consumption (etoh). Medications and Allergies Allergies Allergy/AdvReac Type Severity Reaction Status Date / Time naproxen Allergy Unknown Verified 11/19/12 09:10 Sulfa (Sulfonamide Allergy Headache Verified 11/19/12 09:10 Antibiotics) levofloxacin [From Levaquin] AdvReac Headache Verified 06/23/17 00:04 Home Medications Medication Instructions Recorded Confirmed Last Taken Type Insulin NPH Hum/Reg Insulin Hm 30 units SUB-Q AMHY 06/25/17 06/25/17 Unknown History [HumuLIN 70-30 Vial] Lasix 40 mg PO ONCE 06/25/17 06/25/17 Unknown History amLODIPine [Norvasc] 5 mg PO QDAY 06/25/17 06/25/17 Unknown History OLANZapine 15 mg PO HS #15 tablet 08/20/17 Unknown Rx Sertraline [Zoloft] 50 mg PO QDAY #15 tablet 08/20/17 Unknown Rx Amlodipine Besylate [Norvasc] 10 mg PO QDAY #30 tablet 10/02/17 Unknown Rx OLANZapine [Zyprexa] 15 mg PO QHS #10 tablet 10/02/17 Unknown Rx Sertraline [Zoloft] 50 mg PO QHS #10 tablet 10/02/17 Unknown Rx Active Meds: Active Medications Amlodipine Besylate (Norvasc) 5 mg PO QDAY [facility] Last Admin: 12/01/17 09:48 Dose: 5 mg Insulin Human Isoph/Insulin Regular (Humulin 70/30) 30 unit SUB-Q BIDDIAB [facility] Last Admin: 12/01/17 09:30 Dose: 30 unit Olanzapine (Zyprexa) 15 mg PO HS [facility] Last Admin: 11/30/17 22:42 Dose: 15 mg Sertraline HCl (Zoloft) 50 mg PO QDAY [facility] Last Admin: 12/01/17 09:48 Dose: 50 mg Past psychiatric history - Past Medical History Past Medical History: diabetes, hypertension Past Surgical History: No surgical history - past Psychiatric treatment and history psychiatric treatment history: Inpatient psy services in the past. Denies a fam psy hx. - Social History Social history: lives with family Mental Status Exam - Vital signs Last Vital Signs Temp 98.1 F 12/01/17 09:50 Pulse 78 12/01/17 09:50 Resp 16 12/01/17 10:27 BP 151/78 12/01/17 09:50 Pulse Ox 98 12/01/17 10:27 - Exam Narrative exam: MSE: Appearance: calm, cooperative Behavior: regular eye contact Speech: regular rate and tone Mood: "depressed' Affect: congruent to mood Thought Process: circumstantial Thought Content: denies SI/HI's and VH's Motor Activity: ambulatory Cognition: A/O x 3 Insight: variable Judgment: variable Results Result Diagrams: 11/30/17 05:26 12/01/17 02:50 Abnormal lab results 11/30/17 11/30/17 11/30/17 Range/Units 17:55 21:10 22:49 Chloride (98-107) mmol/L Carbon Dioxide (22-30) mmol/L BUN (7-17) mg/dL Creatinine (0.7-1.2) mg/dL Glucose (65-100) mg/dL POC Glucose 341 H 348 H 340 H (70-105) 12/01/17 12/01/17 12/01/17 Range/Units 02:50 06:17 08:21 Chloride 110.7 H (98-107) mmol/L Carbon Dioxide 21 L (22-30) mmol/L BUN 46 H (7-17) mg/dL Creatinine 3.0 H (0.7-1.2) mg/dL Glucose 62 L (65-100) mg/dL POC Glucose 122 H 279 H (70-105) All other labs normal. Assessment and Plan Assessment and plan: Impression: Unspecified Mood DO with psy features. The patient is calm and cooperative during the assessment. UDs is negative. DDx: Bipolar Do with psychosis, R/O MDD with psychosis Recommendation/Plan: Continue 1013 with placement to inpatient psy services. Start Zyprexa Zydis 5 mg PO HS for mood/psychosis and Benadryl 25 mg PO HS for sleep. Discussed possible metabolic side effects of Zyprexa Zydis with the patient reference Zyprexa.
[2017-12-01] MEDS ORDERED: NACL 0.9% 1000 ML 1,000 ML IV ONE (18:41)
--- NOTE | 2017-12-01 18:46 | Emergency Department Report ---
Blank Doc - Documentation Documentation: I was informed by RN that patient's BUN was too high for acceptance to psychiatric facility. Patient has had evidence of CKD since June according to review of lab results for the past 5 months. Patient does not have acute kidney injury. Will give IVF. However, I am not hopeful that BUN will respond. Patient will mostly likely remain in our ED until her psychiatric symptoms are medically managed.
[2017-12-01 21:10] LABS: Calcium 8.8 mg/dL (8.4-10.2)
[2017-12-01] MEDS ORDERED: BENADRYL PO SCH (22:00)
[2017-12-02] MEDS: NORVASC PO SCH (10:53)
[2017-12-02 10:54] VITALS: BP 204/90
--- NOTE | 2017-12-02 16:55 | Progress Note ---
Subjective - Reason for Consult Consult date: 12/02/17 Reason for consult: Psychiatric Follow-up Evaluation - Chief Complaint Chief complaint: "I keep hearing voices" Patient is a 47 year old AA female presenting to the ER for AH's and poor appetite. The patient is cooperative but anxious during the assessment. She reports, "I keep hearing voices. I hear somebody talking but I can't make out what they are saying." Per patient her appetite and sleep is appropriate. She continues to endorses depressed mood. She denies SI/HI's, VH's, and delusions. Mental Status Exam - Vital signs Last Vital Signs Temp 98.4 F 12/02/17 10:00 Pulse 72 12/02/17 10:53 Resp 18 12/02/17 10:00 BP 204/90 12/02/17 10:53 Pulse Ox 97 12/02/17 10:00 - Exam Narrative exam: Mental Status Exam General Appearance: Causally Dressed-hospital gown Eye Contact: Intermittent Orientation: Alert and oriented x 4 (person, place, time, and situation) Attitude/Behavior: Cooperative Sensorium: Distracted Psychomotor & Musculoskeletal Activity: Sitting up in bed Mood: "a little anxious"; depressed Affect: Constricted Speech/Language: Normal rate and tone Thought Processes: Circumstantial Thought Content: Reality oriented; logical Perception: + Auditory hallucinations " I can't make out what they're saying" Concentration/Attention: Impaired Suicidal Ideations/Plan: Patient denies. Homicidal Ideations/Plan: Patient denies. Judgment: Variable Insight: Variable Assessment and Plan Impression: Unspecified Mood DO with psy features. The patient is calm and cooperative during the assessment. She endorses AH's. She denies SI/HI's, VH's, and delusions. UDs is negative. DDx: Bipolar Do with psychosis, R/O MDD with psychosis Recommendation/Plan: 1. Continue 1013 with placement to inpatient psy services. 2. Increase Zyprexa Zydis 10 mg PO HS for mood/psychosis and Benadryl 25 mg PO HS for sleep. Discussed possible metabolic side effects of Zyprexa Zydis with the patient reference Zyprexa. 3. Will monitor psychosis, mood, sleep, appetite, compliance, and side effects.
== END 2017-12-02 18:00 ==
LOC: ED 04:40
DX: F39 Unspecified mood [affective] disorder (principal); I10 Essential (primary) hypertension; N19 Unspecified kidney failure; F20.9 Schizophrenia, unspecified; F41.9 Anxiety disorder, unspecified; F32.9 Major depressive disorder, single episode, unspecified; E78.00 Pure hypercholesterolemia, unspecified; Z90.710 Acquired absence of both cervix and uterus; Z98.51 Tubal ligation status; Z88.1 Allergy status to other antibiotic agents; Z88.2 Allergy status to sulfonamides
CPT/HCPCS: 36415; 80048; 80307; 81001; 81025; 82962; 85025; 96372; 99285; G0480; J7030; J7040; 80320; J1815

== ENCOUNTER 2018-12-31 17:32 | Inpatient (IN) | payer MEDICARE ==
[2018-12-31] MEDS ORDERED: LORazepam 2 MG/ML VIAL IM PRN (18:55)
[2018-12-31] MEDS ORDERED: HALOPERIDOL LACTATE 5 MG/1 ML INJ IM PRN (18:55)
[2018-12-31] MEDS ORDERED: INSULIN NPH/REGULAR 70/30 INJ SUB-Q SCH (19:00)
[2018-12-31 21:58] LABS: Basophils # (Auto) 0.2 K/mm3 (0.0-0.1); Basophils % (Auto) 1.9 % (0.0-1.8); Eosinophils # (Auto) 0.2 K/mm3 (0.0-0.4); Eosinophils % (Auto) 1.9 % (0.0-4.3); Hemoglobin 8.5 gm/dl (10.1-14.3); Lymphocytes # (Auto) 2.3 K/mm3 (1.2-5.4); Lymphocytes % (Auto) 22.9 % (13.4-35.0); Mean Corpuscular HGB Conc 31 % (30-34); Mean Corpuscular Volume 81 fl (79-97); Monocytes # (Auto) 1.1 K/mm3 (0.0-0.8); Monocytes % (Auto) 10.7 % (0.0-7.3); Platelet Count 356 K/mm3 (140-440); Red Blood Count 3.34 M/mm3 (3.65-5.03); Red Cell Distribution Width 14.5 % (13.2-15.2)
[2018-12-31] MEDS ORDERED: NON-FORMULARY EACH (Olanzapine [Zyprexa] 15 MG) PO SCH (22:00)
[2018-12-31 22:04] LABS: Albumin 3.8 g/dL (3.9-5)
[2018-12-31 22:23] LABS: Chol/HDL Ratio 3.75 %
--- NOTE | 2019-01-01 08:25 | History and Physical Report ---
GP History & Physical - History of Present Illness Date of admission: 12/31/18 Date of Examination: 01/01/19 Reason for Admission: Impaired reality testing, Psychopathology interference, Severe anxiety/depression Chief Complaint: Paranoid and hearing voices History of Present Illness: The patient is a 48 year old Female, , disabled diagnosed with schizophrenia in 2018. Met with patient today, pt complains of auditory hallucinations, confirms paranoia. Pt stated that her condition makes her feel worthless, keeps her inside feeling depressed watching tv and gives her a hard time to sleep. Pt stated in 2018 the issue started when her had cooked her food, the food had a very sweet taste that she had never tasted before and the next day she started blacking out so she was sure he had poisoned her. Pt stated that she then told him to get her to the hospital because she wasn't feeling good and she was scared. She then explained how she became paranoid and suspicious because of her 's actions during the time. Pt stated that the was moving too slow, like he didn't care and once they got to the hospital he kept taking his phone out and texting like he was trying to cover something up so she had the police escort him out. Pt states that this incident is when she was diagnosed with schizophrenia in 2018, "I never had a problem with voices and things with my mental until then". Pt states that her triggers her anxiety and paranoia when he constantly calls her phone she gets afraid that he is going to hurt her. Pt states that now the voices has worsened, leaving her feeling worthless, depressed, experiencing difficult times sleeping and not wanting to leave the house. Pt said that she is unsure what the voices are saying, but hears them there. Pt states that since being admitted her appetite has decreased, and it always decrease when she is in an hospital or away from home because she is afraid that someone may try and poison her. Pt denies SI/HI/AVH and states "I don't won't to hurt anyone, I just fear that someone is going to hurt me". Pt states that she has been admitted to the hospital before in 2018 and this is her 2nd time being admitted. Pt states that she has taken Trazadone, which was beneficial to her in the past, Sertraline helped keep her calm in the past, Buspirone was always beneficial for anxiety. Pt states that she currently has a psychiatrist that she has been seeing for months. Pt plans to remain compliant with her meds to improve her symptoms. Pt denies missing a dose of her meds and states that she take them every day as prescribed. Legal Status: Voluntary Patient Problems: Current Active Problems Paranoid schizophrenia (Acute) Reaction to Hospitalization: Accepting Medications and Allergies Allergies Allergy/AdvReac Type Severity Reaction Status Date / Time naproxen Allergy Unknown Verified 11/19/12 09:10 Sulfa (Sulfonamide Allergy Headache Verified 11/19/12 09:10 Antibiotics) levofloxacin [From Levaquin] AdvReac Headache Verified 06/23/17 00:04 Home Medications Medication Instructions Recorded Confirmed Last Taken Type Insulin NPH Hum/Reg Insulin Hm 30 units SUB-Q AMHY 06/25/17 01/01/19 Unknown History [HumuLIN 70-30 Vial] Lasix 40 mg PO ONCE 06/25/17 01/01/19 Unknown History amLODIPine 10 mg PO QDAY 06/25/17 01/01/19 12/31/18 10:00 History Sertraline [Zoloft] 50 mg PO QDAY #15 tablet 08/20/17 01/01/19 12/31/18 10:00 Rx OLANZapine [Zyprexa] 15 mg PO QHS #10 tablet 10/02/17 01/01/19 12/31/18 22:00 Rx Active Meds: Active Medications Amlodipine Besylate (Amlodipine) 10 mg PO QDAY [facility] Haloperidol Lactate (Haldol) 5 mg IM Q6H PRN PRN Reason: Agitation Insulin Human Isoph/Insulin Regular (Humulin 70/30) 30 unit SUB-Q AMHY [facility] Lorazepam (Ativan) 2 mg IM Q6H PRN PRN Reason: Agitation Olanzapine (Zyprexa) 15 mg PO QHS [facility] Last Admin: 12/31/18 21:55 Dose: 15 mg Documented by: Sertraline HCl (Zoloft) 50 mg PO QDAY [facility] Substance History - Substance History Drug Use: none Hx Tobacco Use: No Alcohol Use: No Past psychiatric history - Past Medical History Past Medical History: diabetes, renal failure, other (sleep apnea, cardiomegaly) Past Surgical History: No surgical history - past Psychiatric treatment and history Psych: Anxiety, Depression, Schizophrenia Review of Systems Psychiatric: anxiety, change in appetite, hallucinations, paranoia, depression, hopelessness Results - Results Labs/Vitals: Laboratory Last Values WBC 10.1 K/mm3 (4.5-11.0) 12/31/18 21:18 RBC 3.34 M/mm3 (3.65-5.03) L 12/31/18 21:18 Hgb 8.5 gm/dl (10.1-14.3) L 12/31/18 21:18 Hct 27.0 % (30.3-42.9) L 12/31/18 21:18 MCV 81 fl (79-97) 12/31/18 21:18 MCH 25 pg (28-32) L 12/31/18 21:18 MCHC 31 % (30-34) 12/31/18 21:18 RDW 14.5 % (13.2-15.2) 12/31/18 21:18 Plt Count 356 K/mm3 (140-440) 12/31/18 21:18 Lymph % (Auto) 22.9 % (13.4-35.0) 12/31/18 21:18 Cecil % (Auto) 10.7 % (0.0-7.3) H 12/31/18 21:18 Eos % (Auto) 1.9 % (0.0-4.3) 12/31/18 21:18 Baso % (Auto) 1.9 % (0.0-1.8) H 12/31/18 21:18 Lymph # 2.3 K/mm3 (1.2-5.4) 12/31/18 21:18 Cecil # 1.1 K/mm3 (0.0-0.8) H 12/31/18 21:18 Eos # 0.2 K/mm3 (0.0-0.4) 12/31/18 21:18 Baso # 0.2 K/mm3 (0.0-0.1) H 12/31/18 21:18 Seg Neutrophils % 62.6 % (40.0-70.0) 12/31/18 21:18 Seg Neutrophils # 6.3 K/mm3 (1.8-7.7) 12/31/18 21:18 Sodium 135 mmol/L (137-145) L 12/31/18 21:18 Potassium 4.3 mmol/L (3.6-5.0) 12/31/18 21:18 Chloride 101.0 mmol/L (98-107) 12/31/18 21:18 Carbon Dioxide 17 mmol/L (22-30) L 12/31/18 21:18 Anion Gap 21 mmol/L 12/31/18 21:18 BUN 59 mg/dL (7-17) H 12/31/18 21:18 Creatinine 4.9 mg/dL (0.7-1.2) H 12/31/18 21:18 Estimated GFR 11 ml/min 12/31/18 21:18 BUN/Creatinine Ratio 12 % 12/31/18 21:18 Glucose 152 mg/dL (65-100) H 12/31/18 21:18 POC Glucose 174 (70-105) H 01/01/19 07:30 Hemoglobin A1c 7.4 % (4-6) H 12/31/18 21:18 Calcium 9.0 mg/dL (8.4-10.2) 12/31/18 21:18 Total Bilirubin 0.20 mg/dL (0.1-1.2) 12/31/18 21:18 AST 36 units/L (5-40) 12/31/18 21:18 ALT 16 units/L (7-56) 12/31/18 21:18 Alkaline Phosphatase 85 units/L (35-129) 12/31/18 21:18 Total Protein 7.9 g/dL (6.3-8.2) 12/31/18 21:18 Albumin 3.8 g/dL (3.9-5) L 12/31/18 21:18 Albumin/Globulin Ratio 0.9 % 12/31/18 21:18 Triglycerides 139 mg/dL (2-149) 12/31/18 21:18 Cholesterol 139 mg/dL (50-199) 12/31/18 21:18 LDL Cholesterol Direct 82 mg/dL (50-130) 12/31/18 21:18 HDL Cholesterol 37 mg/dL (40-59) L 12/31/18 21:18 Cholesterol/HDL Ratio 3.75 % 12/31/18 21:18 Last Vital Signs Temp Pulse 66 12/31/18 20:24 Resp 16 12/31/18 22:56 BP 121/63 12/31/18 20:24 Pulse Ox 99 12/31/18 22:56 Physical Examination - Constitutional Vitals: Vital Signs Temp Pulse Resp BP Pulse Ox 66 16 121/63 99 12/31/18 20:24 12/31/18 22:56 12/31/18 20:24 12/31/18 22:56 General appearance: Present: no acute distress - EENT Eyes: Present: PERRL, EOM intact ENT: hearing intact, clear oral mucosa - Neck Neck: Present: supple, normal ROM - Respiratory Respiratory effort: normal Mental Status Exam - Vital signs Last Vital Signs Temp Pulse 66 12/31/18 20:24 Resp 16 12/31/18 22:56 BP 121/63 12/31/18 20:24 Pulse Ox 99 12/31/18 22:56 - Exam Orientation: time, place, person Affect: flat, depressed Mood: congruent with affect, anxious Thought content: delusions, paranoia Thought Process: Intact Perceptions: auditory, hallucinations Speech: normal rate and pattern Concentration: focused Motor activity: lethargic Level of consciousness: alert Memory: Intact Sleep Symptoms: Insomnia Appetite: decreased Interaction: cooperative Mini mental status exam(if necessary): 24-30 Assessment and Plan - Psychiatric problem (1) Paranoid schizophrenia Current Visit: Yes Status: Acute plan to address problem: Patient will be admitted for inpatient psychiatric evaluation, medication adjustment and close monitoring The patient's behavior, mood, sleep and appetite will be closely monitored. Patient will be enrolled in individual and group therapeutic sessions and encouraged to attend. Patient will be provided with a safe and structured environment. Patient's physical health needs will be addressed by the Hospitalist. Social Assessment will be completed and the Nursing Home Admissions Director will work with patient and family to ensure a suitable and safe disposition Medication adjustment will be made as clinically indicated Physician Certification - Certification Statement Physician Certification Statement: This is an acknowledgement statement that ROSENDO MCFARLANE is a 48 year old F who requires inpatient psychiatric admission for treatment which could reasonably be expected to improve the patient's condition for Estimated period of time patient will need to remain in the hospital: [ ] Plan for post-hospital care: [ ]
--- NOTE | 2019-01-01 09:11 | History and Physical Report ---
History of Present Illness Date of examination: 01/01/19 Date of admission: 12/31/18 18:44 Chief complaint: Anxiety, hallucination History of present illness: This is a 48-year-old female with history of diabetes, hypertension, CKD and schizophrenia diagnosed in 2018 presented to the hospital with complaints of anxiety, auditory hallucination. Patient is being admitted to the [facility] psych unit. Medicine service has been consulted to further evaluate the patient for any medical need. Patient has no new complaint, except for 2 boots of loose stool. Appears very cooperative during the exam. Review of System: Constitutional: no fever, no chills, no weight loss Ears, eyes, nose, mouth and throat: no nasal congestion, no nasal discharge, no sinus pressure, no vision change, no red eye. Neck: No neck pain or rigidity. Cardiovascular: No chest pain, no orthopnea, no palpitations, no leg swelling Respiratory: No shortness of breath, no cough, no congestion, no wheezing Gastrointestinal: no abdominal pain, no nausea, no vomiting Genitourinary : no dysuria, no hematuria Musculoskeletal: no joint swelling or muscle ache Integumentary: no rash, no pruritis Neurological: no parathesias, no numbness, no tingling Endocrine: no cold or heat intolerance, no polyuria or polydipsia Hematologic/Lymphatic: no easy bruising, no easy bleeding, no gland swelling Allergic/Immunologic: no urticaria, no angioedema. Past History Past Medical History: diabetes, renal failure, other (sleep apnea, cardiomegaly) Medications and Allergies Allergies Allergy/AdvReac Type Severity Reaction Status Date / Time naproxen Allergy Unknown Verified 11/19/12 09:10 Sulfa (Sulfonamide Allergy Headache Verified 11/19/12 09:10 Antibiotics) levofloxacin [From Levaquin] AdvReac Headache Verified 06/23/17 00:04 Home Medications Medication Instructions Recorded Confirmed Last Taken Type Insulin NPH Hum/Reg Insulin Hm 30 units SUB-Q AMHY 06/25/17 01/01/19 Unknown History [HumuLIN 70-30 Vial] Lasix 40 mg PO ONCE 06/25/17 01/01/19 Unknown History amLODIPine 10 mg PO QDAY 06/25/17 01/01/19 12/31/18 10:00 History Sertraline [Zoloft] 50 mg PO QDAY #15 tablet 08/20/17 01/01/19 12/31/18 10:00 Rx OLANZapine [Zyprexa] 15 mg PO QHS #10 tablet 10/02/17 01/01/19 12/31/18 22:00 Rx Active Meds: Active Medications Amlodipine Besylate (Amlodipine) 10 mg PO QDAY [facility] Haloperidol Lactate (Haldol) 5 mg IM Q6H PRN PRN Reason: Agitation Insulin Human Isoph/Insulin Regular (Humulin 70/30) 30 unit SUB-Q AMHY [facility] Lorazepam (Ativan) 2 mg IM Q6H PRN PRN Reason: Agitation Olanzapine (Zyprexa) 15 mg PO QHS [facility] Last Admin: 12/31/18 21:55 Dose: 15 mg Documented by: Sertraline HCl (Zoloft) 50 mg PO QDAY [facility] Exam - Physical Exam Narrative exam: GENERAL: well-developed and morbidly obese AAF lying on bed appeared to be in no discomfort. HEENT: Normocephalic. Atraumatic. No conjunctival congestion or icterus. Patient has moist mucous membranes. NECK: Supple. Trachea midline. CHEST/LUNGS: Clear to auscultated bilaterally, breathing nonlabored. No wheezes crackles or rhonchi. HEART/CARDIOVASCULAR: Regular in rate and rhythm. S1 and S2 positive. ABDOMEN: Abdomen is soft, nontender. Patient has normal bowel sounds. SKIN: There is no rash. Warm and dry. NEURO: No focal motor deficit. Follows command. MUSCULOSKELETAL: No joint effusion or tenderness. EXTRIMITY: No edema, no cyanosis or clubbing. PSYCH: Cooperative. - Constitutional Vitals: Temp Pulse Resp BP Pulse Ox 66 16 121/63 99 12/31/18 20:24 12/31/18 22:56 12/31/18 20:24 12/31/18 22:56 Results - Labs CBC & Chem 7: 12/31/18 21:18 01/02/19 07:09 Labs: Abnormal lab results 12/31/18 12/31/18 12/31/18 Range/Units 20:22 21:18 21:18 RBC 3.34 L (3.65-5.03) M/mm3 Hgb 8.5 L (10.1-14.3) gm/dl Hct 27.0 L (30.3-42.9) % MCH 25 L (28-32) pg [place] % (Auto) 10.7 H (0.0-7.3) % Baso % (Auto) 1.9 H (0.0-1.8) % [place] # 1.1 H (0.0-0.8) K/mm3 Baso # 0.2 H (0.0-0.1) K/mm3 Sodium 135 L (137-145) mmol/L Carbon Dioxide 17 L (22-30) mmol/L BUN 59 H (7-17) mg/dL Creatinine 4.9 H (0.7-1.2) mg/dL Glucose 152 H (65-100) mg/dL POC Glucose 115 H (70-105) Hemoglobin A1c (4-6) % Albumin 3.8 L (3.9-5) g/dL HDL Cholesterol 37 L (40-59) mg/dL 12/31/18 01/01/19 Range/Units 21:18 07:30 RBC (3.65-5.03) M/mm3 Hgb (10.1-14.3) gm/dl Hct (30.3-42.9) % MCH (28-32) pg [place] % (Auto) (0.0-7.3) % Baso % (Auto) (0.0-1.8) % [place] # (0.0-0.8) K/mm3 Baso # (0.0-0.1) K/mm3 Sodium (137-145) mmol/L Carbon Dioxide (22-30) mmol/L BUN (7-17) mg/dL Creatinine (0.7-1.2) mg/dL Glucose (65-100) mg/dL POC Glucose 174 H (70-105) Hemoglobin A1c 7.4 H (4-6) % Albumin (3.9-5) g/dL HDL Cholesterol (40-59) mg/dL Assessment and Plan Schizophrenia with hallucination - Management per primary Other chronic medical issues: Diabetes mellitus type 2 - on NPH 30 units BID, a1c 7.9 Hypertension - on amlodipine Morbid obesity- BMI 40.7 CKD, 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 DVT prophylaxis, patient is ambulatory
[2019-01-01] MEDS ORDERED: SERTRALINE 50 MG TAB PO SCH (10:00)
[2019-01-01] MEDS ORDERED: amLODIPine 10 MG TAB PO SCH (10:00)
[2019-01-01] MEDS: SERTRALINE 100 MG TAB PO SCH (10:20)
[2019-01-01] MEDS: busPIRone 10 MG TAB PO SCH ×2 (10:21→21:05)
[2019-01-01] MEDS: ARIPiprazole 5 MG TAB PO SCH (10:22)
[2019-01-01] MEDS: amLODIPine 10 MG TAB PO SCH (10:26)
[2019-01-01] MEDS: INSULIN NPH/REGULAR 70/30 INJ SUB-Q SCH (16:54)
[2019-01-01] MEDS ORDERED: INSULIN NPH/REGULAR 70/30 INJ SUB-Q SCH (17:00)
[2019-01-01] MEDS: INSULIN REGULAR, HUMAN 100 UNITS/1 ML SUB-Q SCH ×2 (17:08→23:51)
[2019-01-01] MEDS ORDERED: LOPERAMIDE 2 MG/10 ML ORAL LIQD PO PRN (18:23)
[2019-01-01] MEDS ORDERED: LOPERAMIDE 2 MG CAP PO PRN (19:32)
[2019-01-01] MEDS ORDERED: traZODone 50 MG TAB PO PRN (22:00)
[2019-01-01] MEDS ORDERED: MELATONIN 5 MG TAB PO SCH (22:00)
[2019-01-02 07:47] LABS: Calcium 8.5 mg/dL (8.4-10.2)
--- NOTE | 2019-01-02 08:02 | Progress Note ---
Subjective Date of service: 01/02/19 Principal diagnosis: Schizophrenia Subjective Comment: Met with pt today. She complains of distressing auditory hallucinations and she continues to feel paranoid. She fears that some people unknown to her are plotting to harm her. She does not feel safe outside the hospital, was locking herself indoors for several months and did not attend outpatient follow-ups, hence was off of her medications leading to her being admitted here. Patient SI/HI Abilify 5mg and Trazodone 50mg qhs were started yesterday. Sertraline was increased to 100mg qd too. Patient is compliant with medications and reports feeling dizzy as a medication side effect. MSE Orientation: place Affect: normal Mood: calm Thought Process: Organization Perceptions: AH Speech: normal Motor activity: normal Level of consciousness: alert Memory: normal Interaction: cooperative Objective - Criteria for Continued Treatment Criteria for Continued Treatment: Improving Level of Functioning, Understanding Diagnosis and need for Medication, Stablizing Level of Functioning - Mental Status Mental Status: Oriented x 3 - Objective Observation Participation Level: Full Assessment and Plan - Patient Problems (1) Paranoid schizophrenia Current Visit: Yes Status: Acute Plan to address problem: Patient will be admitted for inpatient psychiatric evaluation, medication adjustment and close monitoring The patient's behavior, mood, sleep and appetite will be closely monitored. Patient will be enrolled in individual and group therapeutic sessions and encouraged to attend. Patient will be provided with a safe and structured environment. Patient's physical health needs will be addressed by the Hospitalist. Social Assessment will be completed and the [facility] will work with patient and family to ensure a suitable and safe disposition Medication adjustment will be made as clinically indicated Medications and Allergies Allergies Allergy/AdvReac Type Severity Reaction Status Date / Time naproxen Allergy Unknown Verified 11/19/12 09:10 Sulfa (Sulfonamide Allergy Headache Verified 11/19/12 09:10 Antibiotics) levofloxacin [From Levaquin] AdvReac Headache Verified 06/23/17 00:04 Home Medications Medication Instructions Recorded Confirmed Last Taken Type Insulin NPH Hum/Reg Insulin Hm 30 units SUB-Q AMHY 06/25/17 01/01/19 Unknown History [HumuLIN 70-30 Vial] Lasix 40 mg PO ONCE 06/25/17 01/01/19 Unknown History amLODIPine 10 mg PO QDAY 06/25/17 01/01/19 12/31/18 10:00 History Sertraline [Zoloft] 50 mg PO QDAY #15 tablet 08/20/17 01/01/19 12/31/18 10:00 Rx OLANZapine [Zyprexa] 15 mg PO QHS #10 tablet 10/02/17 01/01/19 12/31/18 22:00 Rx Active Meds: Active Medications Amlodipine Besylate (Amlodipine) 10 mg PO QDAY [facility] Last Admin: 01/01/19 10:26 Dose: 10 mg Documented by: Aripiprazole (Aripiprazole) 5 mg PO QDAY [facility] Last Admin: 01/01/19 10:22 Dose: 5 mg Documented by: Buspirone HCl (Buspar) 10 mg PO BID [facility] Last Admin: 01/01/19 21:05 Dose: 10 mg Documented by: Haloperidol Lactate (Haldol) 5 mg IM Q6H PRN PRN Reason: Agitation Insulin Human Isoph/Insulin Regular (Humulin 70/30) 10 unit SUB-Q BIDDIAB [facility] Last Admin: 01/01/19 16:54 Dose: 10 unit Documented by: Insulin Human Regular (Humulin R) 0 units SUB-Q ACHS [facility]; Protocol Last Admin: 01/01/19 23:51 Dose: Not Given Documented by: Loperamide HCl (Imodium) 2 mg PO Q2H PRN PRN Reason: Diarrhea Last Admin: 01/01/19 21:05 Dose: 2 mg Documented by: Lorazepam (Ativan) 2 mg IM Q6H PRN PRN Reason: Agitation Melatonin (Melatonin) 5 mg PO QHS [facility] Last Admin: 01/01/19 21:05 Dose: 5 mg Documented by: Sertraline HCl (Zoloft) 100 mg PO QDAY [facility] Last Admin: 01/01/19 10:20 Dose: 100 mg Documented by: Trazodone HCl (Desyrel) 50 mg PO QHS PRN PRN Reason: Insomnia Results - Results Labs/Vitals: Laboratory Last Values WBC 10.1 K/mm3 (4.5-11.0) 12/31/18 21:18 RBC 3.34 M/mm3 (3.65-5.03) L 12/31/18 21:18 Hgb 8.5 gm/dl (10.1-14.3) L 12/31/18 21:18 Hct 27.0 % (30.3-42.9) L 12/31/18 21:18 MCV 81 fl (79-97) 12/31/18 21:18 MCH 25 pg (28-32) L 12/31/18 21:18 MCHC 31 % (30-34) 12/31/18 21:18 RDW 14.5 % (13.2-15.2) 12/31/18 21:18 Plt Count 356 K/mm3 (140-440) 12/31/18 21:18 Lymph % (Auto) 22.9 % (13.4-35.0) 12/31/18 21:18 Bowman % (Auto) 10.7 % (0.0-7.3) H 12/31/18 21:18 Eos % (Auto) 1.9 % (0.0-4.3) 12/31/18 21:18 Baso % (Auto) 1.9 % (0.0-1.8) H 12/31/18 21:18 Lymph # 2.3 K/mm3 (1.2-5.4) 12/31/18 21:18 Bowman # 1.1 K/mm3 (0.0-0.8) H 12/31/18 21:18 Eos # 0.2 K/mm3 (0.0-0.4) 12/31/18 21:18 Baso # 0.2 K/mm3 (0.0-0.1) H 12/31/18 21:18 Seg Neutrophils % 62.6 % (40.0-70.0) 12/31/18 21:18 Seg Neutrophils # 6.3 K/mm3 (1.8-7.7) 12/31/18 21:18 Sodium 136 mmol/L (137-145) L 01/02/19 07:09 Potassium 4.3 mmol/L (3.6-5.0) 01/02/19 07:09 Chloride 105.2 mmol/L (98-107) 01/02/19 07:09 Carbon Dioxide 17 mmol/L (22-30) L 01/02/19 07:09 Anion Gap 18 mmol/L 01/02/19 07:09 BUN 63 mg/dL (7-17) H 01/02/19 07:09 Creatinine 5.2 mg/dL (0.7-1.2) H 01/02/19 07:09 Estimated GFR 11 ml/min 01/02/19 07:09 BUN/Creatinine Ratio 12 % 01/02/19 07:09 Glucose 120 mg/dL (65-100) H 01/02/19 07:09 POC Glucose 114 (70-105) H 01/02/19 07:42 Hemoglobin A1c 7.4 % (4-6) H 12/31/18 21:18 Calcium 8.5 mg/dL (8.4-10.2) 01/02/19 07:09 Total Bilirubin 0.20 mg/dL (0.1-1.2) 12/31/18 21:18 AST 36 units/L (5-40) 12/31/18 21:18 ALT 16 units/L (7-56) 12/31/18 21:18 Alkaline Phosphatase 85 units/L (35-129) 12/31/18 21:18 Total Protein 7.9 g/dL (6.3-8.2) 12/31/18 21:18 Albumin 3.8 g/dL (3.9-5) L 12/31/18 21:18 Albumin/Globulin Ratio 0.9 % 12/31/18 21:18 Triglycerides 139 mg/dL (2-149) 12/31/18 21:18 Cholesterol 139 mg/dL (50-199) 12/31/18 21:18 LDL Cholesterol Direct 82 mg/dL (50-130) 12/31/18 21:18 HDL Cholesterol 37 mg/dL (40-59) L 12/31/18 21:18 Cholesterol/HDL Ratio 3.75 % 12/31/18 21:18 Last Vital Signs Temp 98.5 F 01/01/19 22:00 Pulse 75 01/01/19 22:00 Resp 20 01/01/19 22:00 BP 127/57 01/01/19 22:00 Pulse Ox 97 01/01/19 22:00
[2019-01-02] MEDS: INSULIN REGULAR, HUMAN 100 UNITS/1 ML SUB-Q SCH ×2 (08:08→12:43)
[2019-01-02 09:14] VITALS: BP 145/70
[2019-01-02] MEDS: ARIPiprazole 5 MG TAB PO SCH (09:17)
[2019-01-02] MEDS: busPIRone 10 MG TAB PO SCH (09:17)
[2019-01-02] MEDS: amLODIPine 10 MG TAB PO SCH (09:17)
[2019-01-02] MEDS: SERTRALINE 100 MG TAB PO SCH (09:17)
[2019-01-02] MEDS: INSULIN NPH/REGULAR 70/30 INJ SUB-Q SCH (09:22)
--- NOTE | 2019-01-02 10:38 | Event Note ---
Date: 01/02/19 Reviewed BMP today. Cr continue to trend up. her baseline around 2.8, but Cr 5.2 today. Need to admit to medicine floor.
--- NOTE | 2019-01-02 10:56 | Discharge Summary ---
Providers - Providers Date of Admission: 12/31/18 18:44 Date of discharge: 01/02/19 Attending physician: BRANDO RICHARDSON MD 01/01/19 09:40 Consult to Physician [CONS] Routine Comment: Consulting Provider: SEAN LAY Physician Instructions: Reason For Exam: Medical follow up. Patient admitted to [facility] Primary care physician: ONLINE TUTOR Hospitalization Condition: Fair Disposition: DC-07 LEFT AGAINST MED ADVICE Allergies/Adverse Reactions: Allergies naproxen Allergy (Verified 11/19/12 09:10) Unknown Sulfa (Sulfonamide Antibiotics) Allergy (Verified 11/19/12 09:10) Headache levofloxacin [From Levaquin] Adverse Reaction (Verified 06/23/17 00:04) Headache Vital Signs: Last Vital Signs Temp 98.5 F 01/01/19 22:00 Pulse 77 01/02/19 09:17 Resp 20 01/01/19 22:00 BP 145/70 01/02/19 09:17 Pulse Ox 95 01/02/19 08:38 Last Lab: Laboratory Last Values WBC 10.1 K/mm3 (4.5-11.0) 12/31/18 21:18 RBC 3.34 M/mm3 (3.65-5.03) L 12/31/18 21:18 Hgb 8.5 gm/dl (10.1-14.3) L 12/31/18 21:18 Hct 27.0 % (30.3-42.9) L 12/31/18 21:18 MCV 81 fl (79-97) 12/31/18 21:18 MCH 25 pg (28-32) L 12/31/18 21:18 MCHC 31 % (30-34) 12/31/18 21:18 RDW 14.5 % (13.2-15.2) 12/31/18 21:18 Plt Count 356 K/mm3 (140-440) 12/31/18 21:18 Lymph % (Auto) 22.9 % (13.4-35.0) 12/31/18 21:18 [place] % (Auto) 10.7 % (0.0-7.3) H 12/31/18 21:18 Eos % (Auto) 1.9 % (0.0-4.3) 12/31/18 21:18 Baso % (Auto) 1.9 % (0.0-1.8) H 12/31/18 21:18 Lymph # 2.3 K/mm3 (1.2-5.4) 12/31/18 21:18 [place] # 1.1 K/mm3 (0.0-0.8) H 12/31/18 21:18 Eos # 0.2 K/mm3 (0.0-0.4) 12/31/18 21:18 Baso # 0.2 K/mm3 (0.0-0.1) H 12/31/18 21:18 Seg Neutrophils % 62.6 % (40.0-70.0) 12/31/18 21:18 Seg Neutrophils # 6.3 K/mm3 (1.8-7.7) 12/31/18 21:18 Sodium 136 mmol/L (137-145) L 01/02/19 07:09 Potassium 4.3 mmol/L (3.6-5.0) 01/02/19 07:09 Chloride 105.2 mmol/L (98-107) 01/02/19 07:09 Carbon Dioxide 17 mmol/L (22-30) L 01/02/19 07:09 Anion Gap 18 mmol/L 01/02/19 07:09 BUN 63 mg/dL (7-17) H 01/02/19 07:09 Creatinine 5.2 mg/dL (0.7-1.2) H 01/02/19 07:09 Estimated GFR 11 ml/min 01/02/19 07:09 BUN/Creatinine Ratio 12 % 01/02/19 07:09 Glucose 120 mg/dL (65-100) H 01/02/19 07:09 POC Glucose 114 (70-105) H 01/02/19 07:42 Hemoglobin A1c 7.4 % (4-6) H 12/31/18 21:18 Calcium 8.5 mg/dL (8.4-10.2) 01/02/19 07:09 Total Bilirubin 0.20 mg/dL (0.1-1.2) 12/31/18 21:18 AST 36 units/L (5-40) 12/31/18 21:18 ALT 16 units/L (7-56) 12/31/18 21:18 Alkaline Phosphatase 85 units/L (35-129) 12/31/18 21:18 Total Protein 7.9 g/dL (6.3-8.2) 12/31/18 21:18 Albumin 3.8 g/dL (3.9-5) L 12/31/18 21:18 Albumin/Globulin Ratio 0.9 % 12/31/18 21:18 Triglycerides 139 mg/dL (2-149) 12/31/18 21:18 Cholesterol 139 mg/dL (50-199) 12/31/18 21:18 LDL Cholesterol Direct 82 mg/dL (50-130) 12/31/18 21:18 HDL Cholesterol 37 mg/dL (40-59) L 12/31/18 21:18 Cholesterol/HDL Ratio 3.75 % 12/31/18 21:18 - Discharge Diagnoses (1) Paranoid schizophrenia Status: Acute Core Measure Documentation - Palliative Care Palliative Care/ Comfort Measures: Not Applicable Exam - Constitutional Vitals: Temp Pulse Resp BP Pulse Ox 98.5 F 77 20 145/70 95 01/01/19 22:00 01/02/19 09:17 01/01/19 22:00 01/02/19 09:17 01/02/19 08:38 Plan Care Plan Goals: Maintain good and stable mental Health Plan of Treatment: Take medications as prescribed and attend outpatient follow ups Health Concerns: Renal failure Assessment: Paranoid Schizophrenia Follow up with: PRIMARY MD GABRIELLA [Primary Care Provider] - 7 Days
--- NOTE | 2019-01-02 13:21 | Event Note ---
Date: 01/02/19 DECISION MAKING CAPACITY In order to evaluate the patient's decision-making capacity, I evaluated for doshi areas of decision making. These areas are understanding (of relevant facts about her own health), expressing a choice, appreciation (of how the relevant facts have an impact on the choice), and explaining her reasoning behind the choice (i.e. Pros vs Cons of choice). The results of this evaluation are below: Based on my evaluation, the patient is able to demonstrate understanding, appreciation and reasoning regarding their medical condition and need for treatment. At this time I do believe that the patient has decision-making capacity.
--- NOTE | 2019-01-02 13:55 | Progress Note ---
Assessment and Plan Schizophrenia with hallucination - Management per primary Other chronic medical issues: Diabetes mellitus type 2 - on NPH 30 units BID, a1c 7.9 - BG moderately controlled. blood glucose every before meals at bedtime Hypertension - controlled with on amlodipine, - Monitor BP every shift, Morbid obesity- BMI 40.7 - - Dietary and exercise recommendation as tolerated and appropriate on discharge Alonso on CKD likely stage iv - Cr cont to trend up, patient recommended for transfer to medicine unit for iv fluid hydration. But she refused and doesnot want to tret her CKD. DVT prophylaxis, patient is ambulatory Subjective Date of service: 01/02/19 Principal diagnosis: Schizophrenia Objective - Constitutional Vitals: Vital Signs - 12hr 01/02/19 01/02/19 08:38 09:17 Pulse Rate 77 77 Blood Pressure 145/70 145/70 O2 Sat by Pulse 95 Oximetry - Labs CBC & Chem 7: 12/31/18 21:18 01/02/19 07:09 Labs: Abnormal lab results 01/01/19 01/02/19 01/02/19 Range/Units 16:28 07:09 07:42 Sodium 136 L (137-145) mmol/L Carbon Dioxide 17 L (22-30) mmol/L BUN 63 H (7-17) mg/dL Creatinine 5.2 H (0.7-1.2) mg/dL Glucose 120 H (65-100) mg/dL POC Glucose 170 H 114 H (70-105) 01/02/19 Range/Units 12:11 Sodium (137-145) mmol/L Carbon Dioxide (22-30) mmol/L BUN (7-17) mg/dL Creatinine (0.7-1.2) mg/dL Glucose (65-100) mg/dL POC Glucose 149 H (70-105)
== END 2019-01-02 14:57 | disposition left against medical advice (07) | DRG 885 ==
LOC: UNDOADMIN 17:32 → 3A 17:32 → 5A 18:44
PROVIDERS: ADMIT Psychiatry & Neurology Psychiatry; ATTEND Psychiatry & Neurology Psychiatry
DX: F20.0 Paranoid schizophrenia (principal); Z68.41 Body mass index [BMI] 40.0-44.9, adult; F32.9 Major depressive disorder, single episode, unspecified; F41.9 Anxiety disorder, unspecified; E11.22 Type 2 diabetes mellitus with diabetic chronic kidney disease; I12.9 Hypertensive chronic kidney disease with stage 1 through stage 4 chronic kidney disease, or unspecified chronic kidney disease; E66.01 Morbid (severe) obesity due to excess calories; Z53.29 Procedure and treatment not carried out because of patient's decision for other reasons; Z88.1 Allergy status to other antibiotic agents; Z88.2 Allergy status to sulfonamides; Z88.8 Allergy status to other drugs, medicaments and biological substances; Z79.4 Long term (current) use of insulin; Z79.899 Other long term (current) drug therapy
CPT/HCPCS: 36415; 80048; 80053; 80061; 82962; 83036; 85025; 94660; G0378; J1815

== ENCOUNTER 2021-10-02 01:34 | Emergency (ER) | payer MEDICARE ==
[2021-10-02] MEDS ORDERED: ASPIRIN 325 MG TAB PO ONE (06:13)
--- NOTE | 2021-10-02 06:59 | XRay Report ---
CHEST 1 VIEW 10/02/2021 5:44 AM INDICATION / CLINICAL INFORMATION: Chest pain. COMPARISON: 2 views of the chest from 06/23/2017. FINDINGS: SUPPORT DEVICES: A right internal jugular vein PermCath terminates over the right atrium. HEART / MEDIASTINUM: No significant abnormality. LUNGS / PLEURA: No significant pulmonary abnormality. No significant pleural effusion. No pneumothora x. ADDITIONAL FINDINGS: No significant additional findings. IMPRESSION: 1. No acute abnormality of the chest. Signer Name: Manuel Chavez MD Signed: 10/02/2021 6:55 AM Workstation Name: [id number]
[2021-10-02 07:24] LABS: Basophils # (Auto) 0.1 K/mm3 (0.0-0.1); Basophils % (Auto) 1.4 % (0.0-1.8); Eosinophils # (Auto) 0.4 K/mm3 (0.0-0.4); Eosinophils % (Auto) 4.2 % (0.0-4.3); Hematocrit 32.7 % (30.3-42.9); Hemoglobin 10.6 gm/dl (10.1-14.3); Lymphocytes # (Auto) 1.2 K/mm3 (1.2-5.4); Lymphocytes % (Auto) 14.5 % (13.4-35.0); Mean Corpuscular HGB Conc 32 % (30-34); Mean Corpuscular Volume 86 fl (79-97); Monocytes # (Auto) 0.6 K/mm3 (0.0-0.8); Monocytes % (Auto) 6.7 % (0.0-7.3); Platelet Count 234 K/mm3 (140-440); Red Cell Distribution Width 15.6 % (13.2-15.2)
[2021-10-02 07:37] LABS: Albumin 3.8 g/dL (3.9-5); Calcium 9.9 mg/dL (8.4-10.2)
--- NOTE | 2021-10-02 09:07 | Emergency Department Report ---
ED Chest Pain HPI - General Chief Complaint: Chest Pain Stated Complaint: CHEST PAIN/BED BUGS Time Seen by Provider: 10/02/21 06:18 Source: patient Mode of arrival: Stretcher Limitations: Physical Limitation - History of Present Illness Initial Comments: Patient is a 51-year-old female presenting to ED with complaint of left-sided chest pain that began yesterday after dialysis. The pain is nonradiating and worsened with palpation. - Related Data Home Medications Medication Instructions Recorded Confirmed Last Taken Insulin NPH Hum/Reg Insulin Hm 30 units SUB-Q AMHY 06/25/17 01/01/19 Unknown [HumuLIN 70-30 Vial] Lasix 40 mg PO ONCE 06/25/17 01/01/19 Unknown amLODIPine 10 mg PO QDAY 06/25/17 01/01/19 12/31/18 10:00 Previous Rx's Medication Instructions Recorded Last Taken Type ARIPiprazole 5 mg PO QDAY tablet 01/02/19 Unknown Rx Sertraline [Zoloft] 100 mg PO QDAY tablet 01/02/19 Unknown Rx busPIRone [Buspar] 10 mg PO BID tablet 01/02/19 Unknown Rx traZODone [Desyrel] 50 mg PO QHS PRN tablet 01/02/19 Unknown Rx Allergies Allergy/AdvReac Type Severity Reaction Status Date / Time naproxen Allergy Unknown Verified 11/19/12 09:10 Sulfa (Sulfonamide Allergy Headache Verified 11/19/12 09:10 Antibiotics) levofloxacin [From Levaquin] AdvReac Headache Verified 06/23/17 00:04 Heart Score - HEART Score History: Slightly suspicious EKG: Normal Age: 45-65 Risk factors: 1-2 risk factors Troponin: < normal limit HEART Score: 2 - EKG Read Time Time EKG Completed: 08:51 EKG Read Time: 08:57 - Critical Actions Critical Actions: 0-3 pts:0.9-1.7%risk of adverse cardiac event.Candidate for discharge ED Review of Systems ROS: Stated complaint: CHEST PAIN/BED BUGS Other details as noted in HPI Comment: All other systems reviewed and negative Constitutional: denies: chills, fever Respiratory: denies: cough, shortness of breath, wheezing Cardiovascular: chest pain. denies: palpitations Gastrointestinal: denies: abdominal pain, nausea, diarrhea Genitourinary: denies: urgency, dysuria, discharge Musculoskeletal: denies: back pain, joint swelling, arthralgia Skin: denies: rash, lesions Neurological: denies: headache, weakness, paresthesias Psychiatric: denies: anxiety, depression ED Past Medical Hx - Past Medical History Previous Medical History?: Yes Hx Hypertension: Yes (takes lisinopril) Hx Congestive Heart Failure: No Hx Diabetes: Yes Hx Renal Disease: Yes (Pt reports chronic renal failure) Hx Arthritis: No Hx Seizures: No Hx Psychiatric Treatment: Yes (schizophrenia,anxiety,depression) Hx Asthma: No Hx COPD: No Hx Dementia: No Hx HIV: No Additional medical history: cholesterol, TIA. 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 fibroids - Surgical History Past Surgical History?: Yes Hx Cholecystectomy: No Hx Appendectomy: No Additional Surgical History: d & c. tubal ligation. hysterectomy - Social History Smoking Status: Unknown if ever smoked Substance Use Type: None - Medications Home Medications: Home Medications Medication Instructions Recorded Confirmed Last Taken Type Insulin NPH Hum/Reg Insulin Hm 30 units SUB-Q AMHY 06/25/17 01/01/19 Unknown History [HumuLIN 70-30 Vial] Lasix 40 mg PO ONCE 06/25/17 01/01/19 Unknown History amLODIPine 10 mg PO QDAY 06/25/17 01/01/19 12/31/18 10:00 History ARIPiprazole 5 mg PO QDAY tablet 01/02/19 Unknown Rx Sertraline [Zoloft] 100 mg PO QDAY tablet 01/02/19 Unknown Rx busPIRone [Buspar] 10 mg PO BID tablet 01/02/19 Unknown Rx traZODone [Desyrel] 50 mg PO QHS PRN tablet 01/02/19 Unknown Rx ED Physical Exam - General Limitations: Physical Limitation General appearance: alert, in no apparent distress, obese - Head Head exam: Present: atraumatic, normocephalic - Respiratory Respiratory exam: Present: normal lung sounds bilaterally. Absent: respiratory distress - Cardiovascular Cardiovascular Exam: Present: regular rate, normal rhythm, normal heart sounds - GI/Abdominal GI/Abdominal exam: Present: soft. Absent: distended, tenderness - Neurological Exam Neurological exam: Present: alert, oriented X3 - Psychiatric Psychiatric exam: Present: normal affect, normal mood - Skin Skin exam: Present: warm, dry, intact, normal color ED Course Vital Signs 07/10/02/21 10/02/21 01:35 06:14 08:58 Temperature 98 F 98.7 F Pulse Rate 88 78 Respiratory 18 18 18 Rate Blood Pressure 191/90 168/75 O2 Sat by Pulse 99 96 97 Oximetry ED Medical Decision Making - Lab Data Result diagrams: 10/02/21 06:38 10/02/21 06:38 - EKG Data -: EKG Interpreted by Me EKG shows normal: sinus rhythm, axis, intervals, QRS complexes, ST-T waves Rate: normal - Radiology Data Radiology results: report reviewed No acute cardiopulmonary process on chest x-ray - Medical Decision Making CBC and CMP grossly unremarkable. Troponin within normal limits. Discussed results with patient. Her symptoms are currently resolved. She is stable for discharge home with return precautions. Critical care attestation.: If time is entered above; I have spent that time in minutes in the direct care of this critically ill patient, excluding procedure time. ED Disposition Clinical Impression: Nonspecific chest pain Disposition: 01 HOME / SELF CARE / HOMELESS Is pt being admited?: No Condition: Stable Instructions: Nonspecific Chest Pain, Adult Additional Instructions: Please follow-up with your regular doctor at your earliest convenience. You may return if your symptoms worsen. Referrals: CELINE OCAMPO MD [Primary Care Provider] - 3-5 Days Time of Disposition: 09:07
[2021-10-02 10:04] VITALS: BP 164/82
--- NOTE | 2021-10-02 11:25 | Electrocardiograph Report ---
[facility] Test Date: 2021-10-02 Test Time: 08:51:12 Pat Name: ROSENDO MCFARLANE Department: Room: Gender: F Attorney At Law: CONSUELO : 1970 Requested By: NAMRATA GALLO Order Number: [id number] Reading MD: Kyle Kingsley Measurements Intervals [place] Rate: 75 P: 47 NM: 156 QRS: 30 QRSD: 83 T: 83 QT: 445 QTc: 496 Interpretive Statements Sinus rhythm possible anterior infarct, age undetermined No previous ECG available for comparison Electronically Signed On 10-02-2021 11:24:58 EDT by Kyle Kingsley
== END 2021-10-02 10:03 | disposition home or self-care (01) ==
LOC: ED 01:34
DX: R07.89 Other chest pain (principal); I10 Essential (primary) hypertension; E11.9 Type 2 diabetes mellitus without complications; F20.9 Schizophrenia, unspecified; F41.9 Anxiety disorder, unspecified; F32.9 Major depressive disorder, single episode, unspecified; E78.00 Pure hypercholesterolemia, unspecified; Z90.710 Acquired absence of both cervix and uterus; Z98.51 Tubal ligation status; Z88.2 Allergy status to sulfonamides; Z88.8 Allergy status to other drugs, medicaments and biological substances; Z79.899 Other long term (current) drug therapy; Z79.4 Long term (current) use of insulin
CPT/HCPCS: 36415; 71045; 80053; 84484; 85025; 93005; 99284

== ENCOUNTER 2021-10-19 18:53 | Emergency (ER) | payer MEDICARE | END 2021-10-19 19:00 | disposition left against medical advice (07) | LOC: ED 18:53 | DX: F41.9 Anxiety disorder, unspecified (principal); Z53.21 Procedure and treatment not carried out due to patient leaving prior to being seen by health care provider ==